=== PATIENT | female | born 1990 | race Caucasian/White ===

== ENCOUNTER 2018-01-24 07:52 | Emergency (ER) | payer SELFPAY ==
[~2018-01-24] VITALS: Ht 167.6 cm; Wt 55.0 kg
[2018-01-24 08:01] VITALS: BP 141/60; PULSE 91; RESP 15; TEMP 98.4; O2SAT 99
[2018-01-24] MEDS ORDERED: LIDOCAINE 1%/EPINEPHrine 1:100,000 SOLN 50 ML VIAL ONE (08:14)
[2018-01-24] MEDS ORDERED: LIDOCAINE 1%/EPINEPHrine 1:100,000 SOLN 20 ML VIAL INFIL ONE (08:15)
--- NOTE | 2018-01-24 08:40 | PD ---
HPI Chief Complaint: Skin Problem Time Seen by Provider: 08:08 Travel History International Travel<30 days: No Contact w/Intl Traveler<30days: No Traveled to known affect area: No History of Present Illness HPI 27-year-old female presents the emergency department with painful swollen erythematous abscess to the left medial upper buttock. Patient states it started with possible spider bite approximately 5 days ago and is gotten progressively worse. She states some spontaneous drainage last evening, but worse pain without drainage overnight. Patient has history of similar abscess in her axilla several years ago. She denies fever, chills, or other symptoms. She is allergic to erythromycin, and penicillin. PFSH Past Medical History Asthma: Yes Cancer: No Diabetes: No Diminished Hearing: No Glaucoma: No Hepatitis: No Hiatal Hernia: No Hypertension: No Respiratory: Yes (ASTHMA) Immunizations Current: Yes Thyroid Disease: No ?: Not LMP: 12/20/17 Past Surgical History Abdominal Surgery: Yes (HERNIA 1994) Cardiac Surgery: No Ear Surgery: No Endocrine Surgery: No Eye Surgery: No Genitourinary Surgery: No Gynecologic Surgery: No Oral Surgery: No Thoracic Surgery: No Other Surgery: Yes Social History Alcohol Use: No Tobacco Use: Yes Substance Use: Yes Allergies-Medications (Allergen,Severity, Reaction): Coded Allergies: penicillin G (Unverified Allergy, Intermediate, RASH, 01/24/18) azithromycin (Unverified Allergy, Unknown, 01/24/18) Reported Meds & Prescriptions Reported Meds & Active Scripts Active No Active Prescriptions or Reported Medications Review of Systems Except as stated in HPI: all other systems reviewed are Neg General / Constitutional: No: Fever Eyes: No: Visual changes HENT: No: Headaches Cardiovascular: No: Chest Pain or Discomfort Respiratory: No: Shortness of Breath Gastrointestinal: No: Abdominal Pain Genitourinary: No: Dysuria Musculoskeletal: No: Pain Skin: Positive Lesions, No Rash Neurologic: No: Weakness Psychiatric: No: Depression Endocrine: No: Polydipsia Hematologic/Lymphatic: No: Easy Bruising Physical Exam Narrative GENERAL: Patient appears in moderate distress per SKIN: Warm and dry. Normal color. Normal turgor. Patient has obvious abscess with pointing to the left upper medial buttock measuring 3 cm in diameter. It is very tender and indurated. No spontaneous drainage is noted. HEAD: Atraumatic. Normocephalic. EYES: Pupils equal and round. No scleral icterus. No injection or drainage. ENT: No nasal bleeding or discharge. Mucous membranes pink and moist. Pharynx is clear. Airways patent NECK: Trachea midline. Supple. CARDIOVASCULAR: Regular rate and rhythm. RESPIRATORY: No accessory muscle use. Clear to auscultation. Breath sounds equal bilaterally. GASTROINTESTINAL: Abdomen soft, non-tender, nondistended. Hepatic and splenic margins not palpable. MUSCULOSKELETAL: Extremities without clubbing, cyanosis, or edema. No obvious deformities. NEUROLOGICAL: Awake and alert. No obvious cranial nerve deficits. Motor grossly within normal limits. Five out of 5 muscle strength in the arms and legs. Normal speech. PSYCHIATRIC: Appropriate mood and affect; insight and judgment normal. Data Data Last Documented VS Vital Signs Date Time Temp Pulse Resp B/P (MAP) Pulse Ox O2 Delivery O2 Flow Rate FiO2 01/24/18 08:01 98.4 91 15 141/60 (87) 99 Orders Orders Lidocai-Epi 1%-1:100,000 Inj (Xylocaine- (01/24/18 08:15) Lidocai-Epi 1%-1:100,000 Inj (Xylocaine- (01/24/18 08:14) MDM Medical Decision Making Medical Screen Exam Complete: Yes Emergency Medical Condition: Yes Medical Record Reviewed: Yes Differential Diagnosis Cellulitis. Abscess. Pilonidal cyst. Narrative Course I&D of abscess was performed. Packing was placed Patient placed on Bactrim DS twice daily 7 days. Patient given ibuprofen 800 mg 3 times daily with food #30. Wound care is discussed with the patient. Patient follow-up in 2 days for recheck and packing removal. Patient can follow-up sooner as needed Diagnosis Primary Impression: Abscess of left buttock Patient Instructions: Abscess Incision and Drainage (DC), General Instructions Departure Forms: Work Release Enter return to work date: Jan 26, 2018 Additional Instructions: I&D of abscess was performed. Packing was placed Patient placed on Bactrim DS twice daily 7 days. Patient given ibuprofen 800 mg 3 times daily with food #30. Wound care is discussed with the patient. Patient follow-up in 2 days for recheck and packing removal. Patient can follow-up sooner as needed Med/Other Pt SpecificInfo: Prescription(s) given, Wound Care Scripts No Active Prescriptions or Reported Meds Disposition: 01 DISCHARGE HOME Condition: Stable Owen Gonzales Jan 24, 2018 08:40
[2018-01-24] MEDS ORDERED: IBUP1TAB7 PO (08:41)
[2018-01-24] MEDS ORDERED: BACT800T5 PO (08:41)
== END 2018-01-24 08:55 | disposition home or self-care (01) ==
LOC: NEPK 07:52
DX: L02.31 Cutaneous abscess of buttock (principal); B95.62 Methicillin resistant Staphylococcus aureus infection as the cause of diseases classified elsewhere; J45.909 Unspecified asthma, uncomplicated; Z72.0 Tobacco use
CPT/HCPCS: 10081; 86403; 87070; 87186

== ENCOUNTER 2018-02-02 01:29 | Inpatient (IN) | payer SELFPAY ==
[2018-02-02] VITALS (11 sets, daily range): BP systolic 97–139; BP diastolic 54–78; PULSE 64–114; RESP 18–28; TEMP 98–99.2; O2SAT 96–100
[~2018-02-02] VITALS: Ht 167.6 cm; Wt 51.0 kg
[~2018-02-02 01:29] MED LIST: BACT800T5 PO; IBUP1TAB7 PO
[2018-02-02] MEDS ORDERED: CLINDAMYCIN INJ 900 MG in SODIUM CHLORIDE 0.9% INJ 100 ML IV ONE (02:15)
[2018-02-02] MEDS ORDERED: SODIUM CHLOR 0.9% 1000 ML INJ 1,000 ML IV ONE (02:15)
[2018-02-02] MEDS ORDERED: KETOROLAC TROMETHAMINE 30 MG/ML (IVP) VIAL IV PUSH ONE (02:15)
[2018-02-02] MEDS ORDERED: CLINDAMYCIN 900 MG/NS PREMIX 50 ML IV ONE (02:45)
[2018-02-02 02:55] LABS: AUTOMATED NEUTROPHIL # 7.7 TH/MM3 (1.8-7.7); BASOPHIL # 0.1 TH/MM3 (0-0.2); BASOPHIL % 1.1 % (0.0-2.0); EOSINOPHIL # 0.5 TH/MM3 (0-0.4); EOSINOPHIL % 3.9 % (0.0-4.0); HEMATOCRIT 35.3 % (35.0-46.0); HEMOGLOBIN 11.7 GM/DL (11.6-15.3); LYMPH % 22.8 % (9.0-44.0); LYMPHOCYTE # 2.6 TH/MM3 (1.0-4.8); MEAN CELL VOLUME 89.2 FL (80.0-100.0); MEAN CORPUSCULAR HEMOGLOBIN 29.5 PG (27.0-34.0); MEAN CORPUSCULAR HGB CONC 33.1 % (32.0-36.0); MEAN PLATELET VOLUME 8.2 FL (7.0-11.0); MONOCYTE # 0.7 TH/MM3 (0-0.9); NEUT % 66.2 % (16.0-70.0); PLATELET COUNT 395 TH/MM3 (150-450); RED BLOOD COUNT 3.96 MIL/MM3 (4.00-5.30); RED CELL DISTRIBUTION WIDTH 11.5 % (11.6-17.2); WHITE BLOOD COUNT 11.6 TH/MM3 (4.0-11.0)
[2018-02-02 03:05] LABS: CALCIUM 9.2 MG/DL (8.5-10.1)
[2018-02-02 03:06] LABS: BICARBONATE 25.4 MEQ/L (21.0-32.0)
[2018-02-02 03:09] LABS: CREATININE 0.76 MG/DL (0.50-1.00)
--- NOTE | 2018-02-02 03:16 | RADRPT ---
EXAM DATE/TIME: 02/02/2018 02:13 [facility] COMPARISON: No previous studies available for comparison. INDICATIONS : Patient states severe left hand pain from unknown injury. MEDICAL HISTORY : None. SURGICAL HISTORY : None. ENCOUNTER: Initial ACUITY: 1 day PAIN SCORE: 10/10 LOCATION: Left hand. FINDINGS: 3 views of the left hand. Bone alignment within normal limits. No evidence of fracture. No evidence of joint narrowing. No focal bone erosion. CONCLUSION: Left hand series within normal limits. Mustapha Acosta MD on February 02, 2018 at 3:14 Board Certified Radiologist. This report was verified electronically.
--- NOTE | 2018-02-02 03:17 | RADRPT ---
EXAM DATE/TIME: 02/02/2018 02:20 [facility] COMPARISON: No previous studies available for comparison. INDICATIONS : Chest pain. MEDICAL HISTORY : None. SURGICAL HISTORY : None. ENCOUNTER: Initial ACUITY: 1 day PAIN SCORE: 6/10 LOCATION: Bilateral chest FINDINGS: Single AP view of the chest. The lungs are clear. Cardiomediastinal silhouette within normal limits. No evidence of pleural effusion or pneumothorax. CONCLUSION: No acute cardiopulmonary disease identified. Mustapha Acosta MD on February 02, 2018 at 3:15 Board Certified Radiologist. This report was verified electronically.
--- NOTE | 2018-02-02 03:20 | PD ---
HPI Chief Complaint: Skin Problem Time Seen by Provider: 02:08 Travel History International Travel<30 days: No Contact w/Intl Traveler<30days: No Traveled to known affect area: No History of Present Illness HPI 27-year-old female presents to the emergency department by private transportation for complaint of severe left hand pain with swelling extending into the wrist with redness and warmth. Patient states she was just seen 1 week ago and diagnosed with abscess to the buttock and placed on Bactrim. Subsequently she has had multiple areas of small abscess and drainage but has had marked swelling of the left wrist and hand causing his to cascade in flexion. Patient states shortly after incision and drainage of the rectal abscess she noticed red swelling and a cordlike deformity to the palm of her left hand extending to her left middle finger. Patient is also noted left axillary tenderness and small lymph node prominence. Patient denies fever chills. Patient denies substance use. Patient admits to previous substance use and alcohol use. Patient has completed oral antibiotic Bactrim. Patient does not report any specific injury. The patient rates her pain 9/10 in intensity. Patient states pain is excruciating and intolerable with any attempted extension of her fingers actively or passively. [facility] Past Medical History Narrative Medical Asthma, herniorrhaphy, tobacco use; nursing notes reviewed Asthma: Yes Cancer: No Diabetes: No Diminished Hearing: No Glaucoma: No Hepatitis: No Hiatal Hernia: No Hypertension: No Respiratory: Yes (ASTHMA) Immunizations Current: Yes Tetanus Vaccination: > 5 Years Influenza Vaccination: No ?: Not Past Surgical History Abdominal Surgery: Yes (HERNIA 1994) Other Surgery: Yes Social History Alcohol Use: No Tobacco Use: Yes Substance Use: No Allergies-Medications (Allergen,Severity, Reaction): Coded Allergies: azithromycin (Unverified Allergy, Intermediate, hives, 02/02/18) penicillin G (Unverified Allergy, Intermediate, RASH, 02/02/18) Reported Meds & Prescriptions Reported Meds & Active Scripts Active No Active Prescriptions or Reported Medications Review of Systems Except as stated in HPI: all other systems reviewed are Neg General / Constitutional: Positive: Chills, No: Fever HENT: No: Congestion Cardiovascular: No: Chest Pain or Discomfort Respiratory: No: Shortness of Breath Gastrointestinal: No: Nausea, Vomiting, Abdominal Pain Genitourinary: No: Dysuria Musculoskeletal: Positive: Limited ROM (Left hand and fingers), Pain (Left hand ), No: Myalgias, Arthralgias Skin: Positive Rash Neurologic: No: Weakness Psychiatric: Positive: Anxiety Hematologic/Lymphatic: Positive: Lymph Node Enlargement Physical Exam Narrative GENERAL: Well-developed well-nourished female in no acute distress no respiratory distress SKIN: Warm and dry. Multiple various staged papules with and without scabs in place without pustules vesicles active purulent drainage HEAD: Normocephalic. EYES: No scleral icterus. No injection or drainage. NECK: Supple, trachea midline. No JVD or lymphadenopathy. CARDIOVASCULAR: Regular rate and rhythm without murmurs, gallops, or rubs. RESPIRATORY: Breath sounds equal bilaterally. No accessory muscle use. GASTROINTESTINAL: Abdomen soft, non-tender, nondistended. MUSCULOSKELETAL: No cyanosis, or edema. Attention left upper extremity and left hand and wrist held in partial flexion was reaction of marked pain with attempted extension active or passive affecting specifically the left middle finger and index finger palmar tenderness and soft tissue swelling without crepitus question solo puncture wound (patient denies puncture wound). Capillary refill brisk and less than 2 seconds. Radial ulnar pulses 2+ to palpation. Distal volar erythema and tenderness to palpation of the left axilla without palpable lymphadenopathy. Sensory exam intact. Mild swelling at the base of the left middle finger does not appear to be actually fusiform. BACK: Nontender without obvious deformity. No CVA tenderness. Data Data Last Documented VS Vital Signs Date Time Temp Pulse Resp B/P (MAP) Pulse Ox O2 Delivery O2 Flow Rate FiO2 02/02/18 02:08 20 02/02/18 01:43 99.0 114 139/74 (95) 02/02/18 01:30 98 Orders Orders Basic Metabolic Panel (Bmp) (02/02/18 02:08) Complete Blood Count With Diff (02/02/18 02:08) Blood Culture (02/02/18 02:08) Iv Access Insert/Monitor (02/02/18 02:08) Ed Urine Pregnancytest Poc (02/02/18 02:08) Urinalysis - C+S If Indicated (02/02/18 02:08) Drug Screen, Random Urine (02/02/18 02:08) Hand, Complete ([id number]) (02/02/18 ) Sodium Chlor 0.9% 1000 Ml Inj (Ns 1000 M (02/02/18 02:15) Lactic Acid (02/02/18 02:08) Ketorolac Inj (Toradol Inj) (02/02/18 02:15) Chest, Single Ap (02/02/18 ) Clindamycin 900 Mg/Ns Premix (Cleocin 90 (02/02/18 02:45) Urine Culture (02/02/18 03:00) Vancomycin Inj (Vancomycin Inj) (02/02/18 04:30) Morphine Inj (Morphine Inj) (02/02/18 04:45) Ondansetron Inj (Zofran Inj) (02/02/18 04:45) Mri Hand W&W/O Contrast (02/02/18 ) Labs Laboratory Tests Test 02/02/18 02:40 02/02/18 03:00 White Blood Count 11.6 TH/MM3 Red Blood Count 3.96 MIL/MM3 Hemoglobin 11.7 GM/DL Hematocrit 35.3 % Mean Corpuscular Volume 89.2 FL Mean Corpuscular Hemoglobin 29.5 PG Mean Corpuscular Hemoglobin Concent 33.1 % Red Cell Distribution Width 11.5 % Platelet Count 395 TH/MM3 Mean Platelet Volume 8.2 FL Neutrophils (%) (Auto) 66.2 % Lymphocytes (%) (Auto) 22.8 % Monocytes (%) (Auto) 6.0 % Eosinophils (%) (Auto) 3.9 % Basophils (%) (Auto) 1.1 % Neutrophils # (Auto) 7.7 TH/MM3 Lymphocytes # (Auto) 2.6 TH/MM3 Monocytes # (Auto) 0.7 TH/MM3 Eosinophils # (Auto) 0.5 TH/MM3 Basophils # (Auto) 0.1 TH/MM3 CBC Comment DIFF FINAL Differential Comment Blood Urea Nitrogen 17 MG/DL Creatinine 0.76 MG/DL Random Glucose 106 MG/DL Calcium Level 9.2 MG/DL Sodium Level 135 MEQ/L Potassium Level 3.7 MEQ/L Chloride Level 102 MEQ/L Carbon Dioxide Level 25.4 MEQ/L Anion Gap 8 MEQ/L Estimat Glomerular Filtration Rate 91 ML/MIN Lactic Acid Level 1.0 mmol/L Urine Color YELLOW Urine Turbidity SL CLOUDY Urine pH 7.5 Urine Specific Emerson LESS/EQUAL 1.005 Urine Protein NEG mg/dL Urine Glucose (UA) NEG mg/dL Urine Ketones NEG mg/dL Urine Occult Blood NEG Urine Nitrite NEG Urine Bilirubin NEG Urine Urobilinogen 0.2 MG/DL Urine Leukocyte Esterase NEG Urine RBC 0-2 /hpf Urine WBC 0-2 /hpf Urine Squamous Epithelial Cells 0-5 /hpf Urine Bacteria MANY /hpf Microscopic Urinalysis Comment CULTURE INDICATED Urine Opiates Screen NEG Urine Barbiturates Screen NEG Urine Amphetamines Screen NEG Urine Benzodiazepines Screen NEG Urine Cocaine Screen NEG Urine Cannabinoids Screen NEG MDM Medical Decision Making Medical Screen Exam Complete: Yes Emergency Medical Condition: Yes Medical Record Reviewed: Yes Interpretation(s) POC hcg: negative UDS: negative Lactic acid: 1.0, not elevated UA: many bacteria, cx indicated Last Impressions Hand X-Ray 02/02/18 0000 Signed Impressions: Service Date/Time: Friday, February 02, 2018 02:13 - CONCLUSION: Left hand series within normal limits. Mustapha Acosta MD Chest X-Ray 02/02/18 0000 Signed Impressions: Service Date/Time: Friday, February 02, 2018 02:20 - CONCLUSION: No acute cardiopulmonary disease identified. Mustapha Acosta MD CBC & BMP Diagram 02/02/18 02:40 Calcium Level 9.2 Vital Signs Date Time Temp Pulse Resp B/P (MAP) Pulse Ox O2 Delivery O2 Flow Rate FiO2 02/02/18 02:08 20 02/02/18 01:43 99.0 114 20 139/74 (95) 02/02/18 01:30 99.0 114 18 139/74 (95) 98 Differential Diagnosis Folliculitis skin popping cellulitis infectious flexor tenosynovitis de Quervain 's inflammatory tenosynovitis radial nerve palsy compartment syndrome fracture puncture wound retained foreign body polysubstance ingestion Narrative Course IV access obtained specimens collections of resulting patient administered clindamycin 900 mg IV piggyback and Toradol 30 mg IV x-ray of the left hand performed to evaluate for retained radiopaque foreign body or subcu gas neither of which are noted and no evidence for fracture Patient given additional IV antibiotic 1 g vancomycin CBC with automated differential left shift with normal total white cell count and lactic acid is 1.0, not elevated; imaging shows no acute abnormality other than soft tissue swelling Urine drug screen is negative however urinalysis shows bacteriuria Patient's case discussed with on-call hand surgeon recommend stat MRI of the hand and will see in consultation this morning with MRI imaging; case discussed with on-call medicine for admission; patient being kept n.p.o. Patient given morphine sulfate 3 mg IV 1 dose Physician Communication Physician Communication discussed with Dr Soni requests stat MRI of the hand will see this AM, npo; call placed to [facility] discussed with Dr Curry --admit, npo Diagnosis Primary Impression: Cellulitis of multiple sites of left hand and fingers Additional Impression: Bacteriuria Admitting Information Admitting Physician Requests: Admit Scripts No Active Prescriptions or Reported Meds Amisha Aquino MD Feb 02, 2018 03:20
[2018-02-02 03:27] LABS: BILIRUBIN, URINE NEG (NEG); BLOOD, URINE NEG (NEG); GLUCOSE,URINE NEG (NEG); KETONE, URINE NEG (NEG); NITRITE,URINE NEG (NEG); PH, URINE 7.5 (5.0-8.5); URINE COLOR YELLOW (YELLW/STRAW); URINE LEUKOCYTE ESTERASE NEG (NEG)
[2018-02-02 03:36] LABS: BACTERIA, URINE MANY /hpf; RBC, URINE 0-2 /hpf (0-3); SQUAMOUS EPITHELIAL CELL URINE 0-5 /hpf (0-5); WBC, URINE 0-2 /hpf (0-5)
[2018-02-02] MEDS ORDERED: VANCOMYCIN INJ 1,000 MG in SODIUM CHLOR 0.9% 250 ML INJ 250 ML IV ONE (04:30)
[2018-02-02] MEDS ORDERED: SODIUM CHLOR 0.9% 1000 ML INJ 1,000 ML IV SCH (04:40)
[2018-02-02] MEDS ORDERED: MORPHINE SULFATE 2 MG/ML SYRINGE IV PUSH ONE (04:45)
[2018-02-02] MEDS ORDERED: SENNOSIDES 8.6 MG TAB PO PRN (04:45)
[2018-02-02] MEDS ORDERED: ACETAMINOPHEN 325 MG TAB PO PRN (04:45)
[2018-02-02] MEDS ORDERED: BISACODYL 10 MG SUPP RECTAL PRN (04:45)
[2018-02-02] MEDS ORDERED: LACTULOSE SYRUP 20 GM/30 ML CUP PO PRN (04:45)
[2018-02-02] MEDS ORDERED: MAGNESIUM HYDROXIDE SUSP 30 ML CUP PO PRN (04:45)
[2018-02-02] MEDS ORDERED: ONDANSETRON HCL 4 MG/2 ML VIAL IV PUSH ONE (04:45)
[2018-02-02] MEDS ORDERED: ONDANSETRON HCL 4 MG/2 ML VIAL IVP PRN (04:45)
[2018-02-02] MEDS ORDERED: Vancomycin Consult Pharmacy 1 EA OTHER SCH (04:45)
[2018-02-02] MEDS ORDERED: GADODIAMIDE PF 287 MG/ML 5 ML VIAL (for RAD MRI) IVCONTRAST ONE (06:36)
--- NOTE | 2018-02-02 07:03 | RADRPT ---
EXAM DATE/TIME: 02/02/2018 06:11 [facility] COMPARISON: HAND LEFT COMPLETE ([id number]), February 02, 2018, 2:13. INDICATIONS : Abscess. Left hand pain from distal third MCPJ to wrist. CONTRAST: 10 cc Omniscan (gadodiamide) IV MEDICAL HISTORY : Methicillin-resistant Staphylococcus aureus. Asthma. SURGICAL HISTORY : Left thumb surgery. Hernia surgery. ENCOUNTER: Initial ACUITY: 1 day PAIN SCORE: 9/10 LOCATION: Left hand TECHNIQUE: Multiplanar, multisequence MRI examination was performed without contrast and after the intravenous a dministration of gadolinium. FINDINGS: Diffuse thickening and intermediate signal abnormality of the flexor digitorum superficialis tendon o f the long finger. Ill-defined surrounding soft tissue edema and enhancement is seen adjacent to all of the flexor digitorum tendons at the levels of the metacarpals and carpal tunnel. Bone marrow signal is homogeneous and within normal limits. No focal bone erosion. CONCLUSION: Extensive peritendinitis/tenosynovitis of the flexor digitorum tendons. Diffuse tendinosis of the rin g finger flexor digitorum superficialis tendon. Infection is in the differential diagnosis. Mustapha Acosta MD on February 02, 2018 at 6:50 Board Certified Radiologist. This report was verified electronically.
[2018-02-02] MEDS: SODIUM CHLORIDE 0.9% FLUSH 10 ML FLUSH IV FLUSH SCH ×2 (07:51→21:31)
[2018-02-02] MEDS: DOCUSATE SODIUM 50 MG/SENNA 8.6 MG TAB PO SCH ×2 (08:06→21:28)
--- NOTE | 2018-02-02 08:30 | HHI.HP ---
[facility] No Primary Care Physician Admission Diagnosis Cellulitis/tenosynovitis L hand Diagnoses: (1) Bacteriuria (2) Cellulitis of multiple sites of left hand and fingers Chief Complaint: Left wrist/hand swelling Travel History International Travel<30 Days: No Contact w/Intl Traveler <30 Da: No Traveled to Known Affected Are: No History of Present Illness This is a 27-year-old female patient with a known medical history of IV drug abuse, asthma, tobacco abuse who presented to the ED with complaints of severe left wrist/hand swelling and pain. Patient seen and examined in hospital room with friend at bedside, patient is not verbalizing, rather uncooperative and not responding or answering to any of the questions asked. Friend at bedside is assisting with retrieving medical history. Supposedly patient presented to the ED 1 week ago for a buttock abscess suspected secondary to a spider bite that was drained in ED and prescribed Bactrim. Supposedly patient had delays in retrieving antibiotic and did not take full course of antibiotic. Since that time patient developed a left hand swelling and pain as well as the development of multiple blisters and sores over both bilateral upper and lower extremities. She also complained of left axillary tenderness. When inquired about IV drug abuse her friend at bedside states that is a violation of privacy and he will not disclose this information. Drug tox is negative. Patient is not answering question. Patient is presented with multiple areas of small abscesses and drainage. She does complain of pain to movement or palpation of wrist. There are reports of subjective fevers and chills as well as diaphoresis. Denies any recent weight loss. Review of Systems ROS Limitations: Uncooperative, Refused Constitutional: COMPLAINS OF: Fatigue, Fever, Chills Eyes: DENIES: Diplopia Respiratory: DENIES: Cough, Sputum production, Shortness of breath Cardiovascular: DENIES: Chest pain Gastrointestinal: DENIES: Abdominal pain, Black stools, Bloody stools, Constipation, Diarrhea, Nausea, Vomiting Psychiatric: DENIES: Anxiety Except as stated in HPI: all other systems reviewed are Neg Past Family Social History Past Medical History IV drug abuse Tobacco abuse Asthma Past Surgical History Unspecified left hand surgery Hernia repair Reported Medications Active No Active Prescriptions or Reported Medications Allergies: Coded Allergies: azithromycin (Unverified Allergy, Intermediate, hives, 02/02/18) penicillin G (Unverified Allergy, Intermediate, RASH, 02/02/18) Active Ordered Medications Current Medications Medications (Trade) Dose Ordered Sig/Chelo Route Start Time Stop Time Status Last Admin Pharmacy Profile Note 0 ml @ 0 mls/hr UNSCH OTHER 02/02/18 04:45 Cefepime HCl 1000 mg/Sodium Chloride 100 ml @ 200 mls/hr Q12H IV 02/02/18 09:00 02/02/18 08:52 Sodium Chloride 1,000 ml @ 100 mls/hr Q10H IV 02/02/18 04:40 02/02/18 06:36 (NS Flush) 2 ml UNSCH PRN IV FLUSH 02/02/18 04:45 (NS Flush) 2 ml BID IV FLUSH 02/02/18 09:00 (Zofran Inj) 4 mg Q6H PRN IVP 02/02/18 04:45 (Tylenol) 650 mg Q6H PRN PO 02/02/18 04:45 ([place] 5-325 Mg) 1 tab Q4H PRN PO 02/02/18 04:45 (Morphine Inj) 2 mg Q3H PRN IV PUSH 02/02/18 04:45 (Gricelda-Colace) 1 tab BID PO 02/02/18 09:00 (Milk Of Magnesia Liq) 30 ml Q12H PRN PO 02/02/18 04:45 (Senokot) 17.2 mg Q12H PRN PO 02/02/18 04:45 (Dulcolax Supp) 10 mg DAILY PRN RECTAL 02/02/18 04:45 (Lactulose Liq) 30 ml DAILY PRN PO 02/02/18 04:45 Vancomycin/Sodium Chloride 200 ml @ 200 mls/hr Q12H IV 02/02/18 16:00 Miscellaneous Information SPECIFIC LAB TO BE DRAWN:VANCOMYCIN TROUGH DATE TO... ONCE ONCE .XX 02/03/18 15:45 02/03/18 15:46 Family History Unable to obtain. Social History Patient does admit to daily tobacco use. Does not answer the question regarding illicit drug use or alcohol use. Physical Exam Vital Signs Vital Signs Date Time Temp Pulse Resp B/P (MAP) Pulse Ox O2 Delivery O2 Flow Rate FiO2 02/02/18 07:28 02/02/18 06:39 65 18 105/59 (74) 98 Room Air 02/02/18 04:46 28 109/65 (80) 97 Room Air 02/02/18 02:08 20 02/02/18 01:43 99.0 114 20 139/74 (95) 02/02/18 01:30 99.0 114 18 139/74 (95) 98 Physical Exam GENERAL: Well-developed, well-nourished patient in NAD. SKIN: Multiple blisters and abrasions on upper and lower extremities. Buttock abrasion assessed, mild erythema, no induration, no drainage. Left hand/wrist swelling. No erythema or drainage. Multiple scabbing throughout body. HEAD: Normocephalic. Atraumatic. EYES: Pupils equal and round. No scleral icterus. No injection or drainage. ENT: No nasal bleeding or discharge. Mucous membranes pink and moist. NECK: Supple. Trachea midline. CARDIOVASCULAR: Regular rate and rhythm. S1, S2 noted. No murmur appreciated. RESPIRATORY: No accessory muscle use. Clear to auscultation. Breath sounds equal bilaterally. GASTROINTESTINAL: Abdomen soft, non-tender, nondistended. Normoactive bowel sounds x4. MUSCULOSKELETAL: No obvious deformities. Extremities without clubbing, cyanosis , or edema. NEUROLOGICAL: Awake and alert. No obvious cranial nerve deficits. Motor grossly within normal limits. 5/5 muscle strength in bilateral upper and lower extremities. PSYCHIATRIC: Patient not verbalizing, withdrawn and flat affect. Laboratory Laboratory Tests Test 02/02/18 02:40 02/02/18 03:00 White Blood Count 11.6 Red Blood Count 3.96 Hemoglobin 11.7 Hematocrit 35.3 Mean Corpuscular Volume 89.2 Mean Corpuscular Hemoglobin 29.5 Mean Corpuscular Hemoglobin Concent 33.1 Red Cell Distribution Width 11.5 Platelet Count 395 Mean Platelet Volume 8.2 Neutrophils (%) (Auto) 66.2 Lymphocytes (%) (Auto) 22.8 Monocytes (%) (Auto) 6.0 Eosinophils (%) (Auto) 3.9 Basophils (%) (Auto) 1.1 Neutrophils # (Auto) 7.7 Lymphocytes # (Auto) 2.6 Monocytes # (Auto) 0.7 Eosinophils # (Auto) 0.5 Basophils # (Auto) 0.1 CBC Comment DIFF FINAL Differential Comment Erythrocyte Sedimentation Rate 57 Blood Urea Nitrogen 17 Creatinine 0.76 Random Glucose 106 Calcium Level 9.2 Sodium Level 135 Potassium Level 3.7 Chloride Level 102 Carbon Dioxide Level 25.4 Anion Gap 8 Estimat Glomerular Filtration Rate 91 Lactic Acid Level 1.0 Urine Color YELLOW Urine Turbidity SL CLOUDY Urine pH 7.5 Urine Specific [place] LESS/EQUAL 1.005 Urine Protein NEG Urine Glucose (UA) NEG Urine Ketones NEG Urine Occult Blood NEG Urine Nitrite NEG Urine Bilirubin NEG Urine Urobilinogen 0.2 Urine Leukocyte Esterase NEG Urine RBC 0-2 Urine WBC 0-2 Urine Squamous Epithelial Cells 0-5 Urine Bacteria MANY Microscopic Urinalysis Comment CULTURE INDICATED Urine Opiates Screen NEG Urine Barbiturates Screen NEG Urine Amphetamines Screen NEG Urine Benzodiazepines Screen NEG Urine Cocaine Screen NEG Urine Cannabinoids Screen NEG Date/Time Source Procedure Growth Status 02/02/18 02:40 Blood Peripheral Aerobic Blood Culture Pending Received 02/02/18 02:40 Blood Peripheral Anaerobic Blood Culture Pending Received 02/02/18 03:00 Urine Clean Catch Urine Culture Pending Received Result Diagram: 02/02/18 0240 02/02/18 0240 Imaging Last Impressions Hand X-Ray 02/02/18 0000 Signed Impressions: Service Date/Time: Friday, February 02, 2018 02:13 - CONCLUSION: Left hand series within normal limits. Mustapha Acosta MD Hand MRI 02/02/18 0000 Signed Impressions: Service Date/Time: Friday, February 02, 2018 06:11 - CONCLUSION: Extensive peritendinitis/tenosynovitis of the flexor digitorum tendons. Diffuse tendinosis of the ring finger flexor digitorum superficialis tendon. Infection is in the differential diagnosis. Mustapha Acosta MD Chest X-Ray 02/02/18 0000 Signed Impressions: Service Date/Time: Friday, February 02, 2018 02:20 - CONCLUSION: No acute cardiopulmonary disease identified. Mustapha Acosta MD Septic Shock Reassessment Septic shock perfusion: reassessment completed Caprini VTE Risk Assessment Caprini VTE Risk Assessment: No/Low Risk (score <= 1) Caprini Risk Assessment Model Point Value = 1 Point Value = 2 Point Value = 3 Point Value = 5 Age 41-60 Minor surgery BMI > 25 kg/m2 Swollen legs Varicose veins or History of unexplained or recurrent spontaneous Oral contraceptives or hormone replacement Sepsis (< 1 month) Serious lung disease, including pneumonia (< 1 month) Abnormal pulmonary function Acute myocardial infarction Congestive heart failure (< 1 month) History of inflammatory bowel disease Medical patient at bed rest Age 61-74 Arthroscopic surgery Major open surgery (> 45 min) Laparoscopic surgery (> 45 min) Malignancy Confined to bed (> 72 hours) Immobilizing plaster cast Central venous access Age >= 75 History of VTE Family history of VTE Factor V Leiden Prothrombin [id number] Lupus anticoagulant Anticardiolipin antibodies Elevated serum homocysteine Heparin-induced thrombocytopenia Other congenital or acquired thrombophilia Stroke (< 1 month) Elective arthroplasty Hip, pelvis, or leg fracture Acute spinal cord injury (< 1 month) Prophylaxis Regimen Total Risk Factor Score Risk Level Prophylaxis Regimen 0-1 Low Early ambulation 2 Moderate Order ONE of the following: *Sequential Compression Device (SCD) *Heparin 5000 units SQ BID 3-4 Higher Order ONE of the following medications: *Heparin 5000 units SQ TID *Enoxaparin/Lovenox 40 mg SQ daily (WT < 150 kg, CrCl > 30 mL/min) *Enoxaparin/Lovenox 30 mg SQ daily (WT < 150 kg, CrCl > 10-29 mL/min) *Enoxaparin/Lovenox 30 mg SQ BID (WT < 150 kg, CrCl > 30 mL/min) AND/OR *Sequential Compression Device (SCD) 5 or more Highest Order ONE of the following medications: *Heparin 5000 units SQ TID (Preferred with Epidurals) *Enoxaparin/Lovenox 40 mg SQ daily (WT < 150 kg, CrCl > 30 mL/min) *Enoxaparin/Lovenox 30 mg SQ daily (WT < 150 kg, CrCl > 10-29 mL/min) *Enoxaparin/Lovenox 30 mg SQ BID (WT < 150 kg, CrCl > 30 mL/min) AND *Sequential Compression Device (SCD) Assessment and Plan Problem List: (1) Bacteriuria ICD Code: R82.71 - Bacteriuria Status: Acute (2) Cellulitis of multiple sites of left hand and fingers ICD Code: L03.012 - Cellulitis of left finger; L03.114 - Cellulitis of left upper limb Status: Acute Assessment and Plan This is a 27-year-old female patient with a known medical history of IV drug abuse, asthma, tobacco abuse who presented to the ED with complaints of severe left wrist/hand swelling and pain. Cellulitis of multiple sites of left hand and fingers suspect secondary to IV drug use - Hand MRI showing extensive peritendinitis/tenosynovitis of the flexor digitorum tendons. Diffuse tendinosis of the ring finger flexor digitorum superficialis tendon. - Infectious disease has been consulted, appreciate input recommendations. Placed on Ceftin cefepime and Vanco. - Ensure hydration, continue IV fluids. Status post NS bolus in the ED. - Abnormal UA. Blood cultures and urine cultures pending, continue to monitor. CBC showing mild leukocytosis. We will continue to follow. Patient has been afebrile. - CRP elevated. - Chest x-ray reviewed showing no acute cardiopulmonary disease. - Control pain, IV narcotics available as needed for pain scale. As well as [place]. Supportive care. History of IV drug abuse: Drug tox negative. Encouraged cessation. DVT prophylaxis: SCDs. Physician Certification 2 Midnight Certification Type: Admission for Inpatient Services Order for Inpatient Services The services are ordered in accordance with Medicare regulations or non- Medicare payer requirements, as applicable. In the case of services not specified as inpatient-only, they are appropriately provided as inpatient services in accordance with the 2-midnight benchmark. Estimated LOS (days): 3 3 days is the estimated time the patient will need to remain in the hospital, assuming treatment plan goals are met and no additional complications. Post-Hospital Plan: Home Fanny Gray Feb 02, 2018 08:30
[2018-02-02] MEDS: CEFEPIME INJ 1,000 MG in SODIUM CHLORIDE 0.9% INJ 100 ML IV SCH ×2 (08:52→21:31)
--- NOTE | 2018-02-02 08:53 | PD.CONS ---
History of Present Illness Service ID CONSULT DR CRAWFORD Consult Requested By DR PEREZ Reason for Consult LEFT WRIST PAIN H/O MRSA Primary Care Physician No Primary Care Physician Diagnoses: (1) Cellulitis of multiple sites of left hand and fingers (2) Bacteriuria History of Present Illness 27 YR OLD FEMALE WHO IS HERE FOR LEFT WRIST PAIN AND SWELLING. SHE WAS HERE A WEEK AGO FOR A POSSIBLE SPIDER BITE TO THE LEFT BUTTOCK. IT SPONTANEOUSLY DRAINED AND SHE WAS SEEN IN ER AND SENT HOME ON BACTRIM 01/24. ACCORDING TO HER FRIEND WHO IS HERE IN THE ROOM SHE DID NOT FILL THE SCRIPT UNTIL ABOUT 3 DAYS LATER. WHEN ASKED IF SHE IS WAS USING ANY IV DRUGS HER FRIEND IS VERY EVASIVE AND STATES HE CANT BETRAY HER TRUST. DRUG SCREEN WAS NEGATIVE. APPARENTLY AFTER THE ABSCESS TO THE BUTTOCK SHE DEVELOPED BLISTERS AND SORES ALL OVER HER ARMS AND LEGS. SHE HAS C/O FEVER AND CHILLS. SHE STARTED TO HAVE PAIN IN THE LEFT WRIST 4 DAYS AGO WITH SWELLING. MRI LEFT HAND SUGGEST INFECTION AROUND THE TENDON. ID IS CONSULTED. HAND SURGERY IS ON BOARD. Review of Systems Constitutional: COMPLAINS OF: Fever, Chills Endocrine: DENIES: Polydipsia, Polyphagia Eyes: DENIES: Photosensitivity Ears, nose, mouth, throat: DENIES: Oral lesions Musculoskeletal: COMPLAINS OF: Joint Swelling Immunologic/allergic: COMPLAINS OF: Urticaria Neurologic: COMPLAINS OF: Localized weakness Past Family Social History Allergies: Coded Allergies: azithromycin (Unverified Allergy, Intermediate, hives, 02/02/18) penicillin G (Unverified Allergy, Intermediate, RASH, 02/02/18) Past Medical History PREVIOUS SKIN ABSCESS H/O MRSA SKIN INFECTION LEFT WRIST SURGERY TATTOOS Past Surgical History LEFT WRIST SURGERY Family History NOT AVAILABLE Social History + TOBACCO USE + SUBSTANCE ABUSE Physical Exam Vital Signs Vital Signs Date Time Temp Pulse Resp B/P (MAP) Pulse Ox O2 Delivery O2 Flow Rate FiO2 02/02/18 07:28 02/02/18 06:39 65 18 105/59 (74) 98 Room Air 02/02/18 04:46 28 109/65 (80) 97 Room Air 02/02/18 02:08 20 02/02/18 01:43 99.0 114 20 139/74 (95) 02/02/18 01:30 99.0 114 18 139/74 (95) 98 Physical Exam GENERAL: This is a lethargic acutely ill patient, in no apparent distress. SKIN: No rashes, ecchymoses multiple skin lesions left [place] with redness swelling . Cool and dry. HEAD: Atraumatic. Normocephalic. No temporal or scalp tenderness. EYES: Pupils equal round and reactive. Extraocular motions intact. No scleral icterus. No injection or drainage. ENT: Nose without bleeding, purulent drainage or septal hematoma. Throat without erythema, tonsillar hypertrophy or exudate. Uvula midline. Airway patent. NECK: Trachea midline. No JVD or lymphadenopathy. Supple, nontender, no meningeal signs. CARDIOVASCULAR: Regular rate and rhythm without murmurs, gallops, or rubs. RESPIRATORY: Clear to auscultation. Breath sounds equal bilaterally. No wheezes , rales, or rhonchi. GASTROINTESTINAL: Abdomen soft, non-tender, nondistended. No hepato-splenomegaly , or palpable masses. No guarding. MUSCULOSKELETAL: Extremities without clubbing, cyanosis, or edema. left wrist joint tenderness and swelling , effusion, or edema noted. No calf tenderness. Negative Homans sign bilaterally. NEUROLOGICAL: lethargic. Laboratory Laboratory Tests Test 02/02/18 02:40 02/02/18 03:00 White Blood Count 11.6 Red Blood Count 3.96 Hemoglobin 11.7 Hematocrit 35.3 Mean Corpuscular Volume 89.2 Mean Corpuscular Hemoglobin 29.5 Mean Corpuscular Hemoglobin Concent 33.1 Red Cell Distribution Width 11.5 Platelet Count 395 Mean Platelet Volume 8.2 Neutrophils (%) (Auto) 66.2 Lymphocytes (%) (Auto) 22.8 Monocytes (%) (Auto) 6.0 Eosinophils (%) (Auto) 3.9 Basophils (%) (Auto) 1.1 Neutrophils # (Auto) 7.7 Lymphocytes # (Auto) 2.6 Monocytes # (Auto) 0.7 Eosinophils # (Auto) 0.5 Basophils # (Auto) 0.1 CBC Comment DIFF FINAL Differential Comment Erythrocyte Sedimentation Rate 57 Blood Urea Nitrogen 17 Creatinine 0.76 Random Glucose 106 Calcium Level 9.2 Sodium Level 135 Potassium Level 3.7 Chloride Level 102 Carbon Dioxide Level 25.4 Anion Gap 8 Estimat Glomerular Filtration Rate 91 Lactic Acid Level 1.0 Urine Color YELLOW Urine Turbidity SL CLOUDY Urine pH 7.5 Urine Specific [place] LESS/EQUAL 1.005 Urine Protein NEG Urine Glucose (UA) NEG Urine Ketones NEG Urine Occult Blood NEG Urine Nitrite NEG Urine Bilirubin NEG Urine Urobilinogen 0.2 Urine Leukocyte Esterase NEG Urine RBC 0-2 Urine WBC 0-2 Urine Squamous Epithelial Cells 0-5 Urine Bacteria MANY Microscopic Urinalysis Comment CULTURE INDICATED Urine Opiates Screen NEG Urine Barbiturates Screen NEG Urine Amphetamines Screen NEG Urine Benzodiazepines Screen NEG Urine Cocaine Screen NEG Urine Cannabinoids Screen NEG Date/Time Source Procedure Growth Status 02/02/18 02:40 Blood Peripheral Aerobic Blood Culture Pending Received 02/02/18 02:40 Blood Peripheral Anaerobic Blood Culture Pending Received 02/02/18 03:00 Urine Clean Catch Urine Culture Pending Received Result Diagram: 02/02/18 0240 02/02/18 0240 Assessment and Plan Problem List: (1) Bacteriuria ICD Codes: R82.71 - Bacteriuria Status: Acute (2) Cellulitis of multiple sites of left hand and fingers ICD Codes: L03.012 - Cellulitis of left finger; L03.114 - Cellulitis of left upper limb Status: Acute Plan: cipro/ vancomycin Cultures to be taken in OR will monitor and fu closely Pt should ideally have an HIV test however currently not lucid enough to consent Further orders to follow Siena Samaniego Feb 02, 2018 08:53
[2018-02-02] MEDS ORDERED: BACITRACIN TOP OINT 15 GM TUBE ONE (12:13)
[2018-02-02] MEDS ORDERED: NEOMYCIN/POLYMYXIN 1 ML G.U. IRRIGANT ONE (12:15)
[2018-02-02] MEDS ORDERED: LIDOCAINE HCL 2% 50 ML VIAL ONE (12:15)
[2018-02-02] MEDS ORDERED: VANCOMYCIN 500 MG VIAL ONE (13:07)
[2018-02-02] MEDS ORDERED: *MEPERIDINE 25 MG INJ VIAL PERIprocedural Use ONLY ONE (14:15)
[2018-02-02] MEDS ORDERED: MORPHINE SULFATE 8 MG/ML INJ ONE (14:22)
[2018-02-02] MEDS ORDERED: *HYDROmorphone PF 1 MG VIAL PERIprocedural Use ONLY ONE (14:45)
[2018-02-02] MEDS ORDERED: LORazepam 2 MG/ML VIAL ONE (14:51)
[2018-02-02] MEDS ORDERED: KETOROLAC TROMETHAMINE 30 MG/ML (IVP) VIAL ONE (14:54)
[2018-02-02] MEDS ORDERED: *Lactated Ringer's INJ 1,000 ML ONE (15:09)
--- NOTE | 2018-02-02 15:46 | PD.ORT.PN ---
Subjective Subjective Remarks Patient reports pain in PACU. Objective Vitals Vital Signs Date Time Temp Pulse Resp B/P (MAP) Pulse Ox O2 Delivery O2 Flow Rate FiO2 02/02/18 15:15 69 16 129/81 (97) 100 Nasal Cannula 2 02/02/18 15:00 98.6 57 16 132/79 (96) 100 Room Air 02/02/18 14:45 75 16 135/88 (104) 95 Room Air 02/02/18 14:30 70 16 132/81 (98) 99 02/02/18 14:15 78 16 121/78 (92) 100 02/02/18 14:12 77 02/02/18 14:12 97.8 77 16 124/81 (95) 96 02/02/18 12:04 99.2 64 16 125/78 (94) 98 02/02/18 11:50 99.2 64 20 125/78 (94) 98 02/02/18 09:08 67 02/02/18 07:50 98.0 65 20 110/73 (85) 100 02/02/18 07:28 02/02/18 06:39 65 18 105/59 (74) 98 Room Air 02/02/18 04:46 28 109/65 (80) 97 Room Air 02/02/18 02:08 20 02/02/18 01:43 99.0 114 20 139/74 (95) 02/02/18 01:30 99.0 114 18 139/74 (95) 98 I/O 02/01/18 02/01/18 02/01/18 02/02/18 02/02/18 02/02/18 07:00 15:00 23:00 07:00 15:00 23:00 Intake Total 1300 ml 100 ml Output Total 10 ml Balance 1300 ml 90 ml Intake IV Total 1300 ml 100 ml Output Urine Total 0 ml Estimated Blood Loss 10 ml Result Diagram: 02/02/18 0240 02/02/18 0240 Imaging Last 24 hours Impressions Hand X-Ray 02/02/18 0000 Signed Impressions: Service Date/Time: Friday, February 02, 2018 02:13 - CONCLUSION: Left hand series within normal limits. Mustapha Acosta MD Hand MRI 02/02/18 0000 Signed Impressions: Service Date/Time: Friday, February 02, 2018 06:11 - CONCLUSION: Extensive peritendinitis/tenosynovitis of the flexor digitorum tendons. Diffuse tendinosis of the ring finger flexor digitorum superficialis tendon. Infection is in the differential diagnosis. Mustapha Acosta MD Chest X-Ray 02/02/18 0000 Signed Impressions: Service Date/Time: Friday, February 02, 2018 02:20 - CONCLUSION: No acute cardiopulmonary disease identified. Mustapha Acosta MD Objective Remarks Dressing in place, <2 sec capillary refill to fingers, able to flex/extend fingers Assessment & Plan Assessment and Plan 27yF POD0 s/p I&D left hand including A1 maria victoria releases and debridement flexor tendon sheaths left index, middle, and ring fingers with clear fluid and tenosynovitis intraop -Follow multiple cultures, appreciate ID input -Elevate hand and work on gentle range of motion -Suture removal approximately 2 weeks Selene Soni MD Feb 02, 2018 15:46
[2018-02-02] MEDS ORDERED: VANCOMYCIN 1 GM/200 ML PREMIX IV SCH (16:00)
--- NOTE | 2018-02-02 17:04 | MP ---
cc: Selene Soni MD DATE OF OPERATION: 02/02/2018 DATE OF PROCEDURE: 02/02/2018 PREOPERATIVE DIAGNOSIS: Infectious tenosynovitis left hand with concern for abscess along the flexor tendon sheath of the left index, middle, and ring fingers. POSTOPERATIVE DIAGNOSIS: Infectious tenosynovitis left hand with concern for abscess along the flexor tendon sheath of the left index, middle, and ring fingers. PROCEDURE PERFORMED: 1. Incision and drainage abscess flexor tendon sheath, left index finger. 2. A1 maria victoria release, left index finger. 3. Incision and drainage abscess and flexor tendon sheath, left middle finger. 4. A1 maria victoria release, left middle finger. 5. Incision and drainage flexor tendon sheath, left ring finger. 6. A1 maria victoria release, left ring finger. SURGEON: Selene Soni MD ANESTHESIA: General and local. TOURNIQUET TIME: 25 minutes at 250 mmHg. SPECIMENS: Two cultures as well as tissue for culture and pathology. INDICATIONS FOR PROCEDURE: Daniela Jasmine is a 27-year-old female with approximately 1 week history of worsening pain and stiffness of the left hand. MRI concerning for infectious flexor tenosynovitis in concurrence with the labs. The patient elected to proceed with surgical intervention. Risks were explained to include but not limited to wound complications, infection, stiffness, pain, long-term contracture of the hand, dysfunction of the hand, need for additional surgeries and she elected to proceed. DESCRIPTION OF PROCEDURE: The patient was identified in the preoperative holding area and the correct extremity was marked. The patient was taken to the operating room where anesthesia was induced. Left upper extremity was prepped and draped in normal sterile fashion. After the patient underwent anesthesia, there was flexion contracture of the left index, middle, and ring fingers. No significant swelling over the forearm. Tourniquet was inflated to 250 mmHg for 25 minutes. Initially, an incision was made over the A1 maria victoria of the left index, middle, and ring fingers. There was clear fluid, which was expressed from the wound, which was sent for culture. There was thick tenosynovitis, which was sent for culture from the left middle finger. The A1 pulleys were incised of the left index, middle, and ring fingers. Three liters of antibiotic saline were irrigated through the wounds. Following this, the patient had full extension of the fingers as well as good tenodesis with range of motion of the wrist. I elected not to proceed with a carpal tunnel release as the patient had no numbness. There was no sign of compartment syndrome to the hand. Tourniquet was released. The patient had less than 2 capillary refill to the fingers. The wounds were closed with nylon. The patient was placed into a soft dressing, awoken from anesthesia without any complications. Approximately 12 mL of 2% lidocaine with no epinephrine was used to perform local anesthesia over the hand. The patient will remain admitted for IV antibiotics. I appreciate infectious disease recommendations. We will continue to follow closely. I also recommend occupational therapy to work on gentle range of motion of the fingers. Selene Soni MD [facility]/SIDNEY , 03:58 PM , 05:03 PM YSIEL
--- NOTE | 2018-02-02 17:11 | MB ---
cc: Selene Soni MD, Sarah E MD DATE: 02/02/2018 REASON FOR CONSULTATION: Pain and swelling, left hand. HISTORY OF PRESENT ILLNESS: Daniela Jasmine is a 27-year-old right-hand dominant female who states she does not know why she has significant pain and swelling over the left hand, but she reports worsening pain and swelling over the past week. The patient does have a past medical history significant for IV drug use with multiple track gao on the left upper extremity. She denies current drug use. She denies paresthesias in the hand. She reports significant pain and stiffness of the left hand, specifically of the left index, middle, and ring fingers. The patient was not very compliant with interview or exam. The patient was seen in the emergency room approximately 1 week ago for an abscess on her buttock, which was treated with Bactrim. She does have a past medical history significant for MRSA infections. The patient states she is not currently working, but has worked in painting in the past. The patient has been given IV antibiotics. PAST MEDICAL HISTORY: Asthma. PAST SURGICAL HISTORY: Hernia repair. ALLERGIES: AZITHROMYCIN, PENICILLIN LABORATORY DATA: White count 11.6. ESR 57, CRP 3.22. Urine tox screen negative today. HIV status pending. PHYSICAL EXAMINATION: Exam of the left hand shows the patient holding the hand with the index, middle and ring fingers flexed. The patient would perform much range of motion, but did have intact function of FDS and FDP. She would not fully extend the index, middle or ring fingers. She would not make a full fist. Sensation intact in the median, ulnar and radial distribution. Less than 2 second capillary refill. No firmness over the forearm. Multiple track gao over the left upper extremity. IMAGING STUDIES: X-rays of the hand show no significant abnormalities. MRI of the hand shows extensive tenosynovitis of the FDP tendons, worse over the middle and ring fingers. ASSESSMENT AND PLAN: A 27-year-old female with approximately 1 week of worsening pain and swelling of her left hand. MRI is concerning for infectious flexor tenosynovitis. Treatment options discussed with the patient. Infectious disease also consulted. At this time, I recommend incision and drainage of the flexor tendon sheath to obtain a culture and to hopefully improve the pain and swelling. The patient elected to proceed. Risks were explained which are not limited to wound complication, infection, sepsis, long-term stiffness and contracture of the hand, paresthesias, need for additional surgeries and she elects to proceed. This will be done at the earliest available time. MD LUZ MARIA Ferreira//armando , 03:54 PM , 04:56 PM YISEL
[2018-02-02] MEDS: MORPHINE SULFATE 2 MG/ML SYRINGE IV PUSH PRN ×2 (17:33→21:48)
[2018-02-02] MEDS: ACETAMINOPHEN/HYDROcodone 325 MG/5 MG TAB PO PRN ×2 (18:15→23:47)
[2018-02-02] MEDS ORDERED: HYDROmorphone HCL PF 2 MG/ML VIAL IV ONE (18:30)
[2018-02-02] MEDS: VANCOMYCIN 1 GM/200 ML PREMIX IV SCH (23:47)
[2018-02-03] VITALS: BP 103/58; PULSE 85; RESP 20; TEMP 98.5; O2SAT 97
[2018-02-03] MEDS: MORPHINE SULFATE 2 MG/ML SYRINGE IV PUSH PRN ×5 (06:42→22:43)
[2018-02-03 07:50] VITALS: BP 132/79; PULSE 75; RESP 20; TEMP 98.1; O2SAT 98
[2018-02-03] MEDS: CEFEPIME INJ 1,000 MG in SODIUM CHLORIDE 0.9% INJ 100 ML IV SCH (07:55)
[2018-02-03] MEDS: SODIUM CHLORIDE 0.9% FLUSH 10 ML FLUSH IV FLUSH SCH ×2 (08:05→20:15)
[2018-02-03] MEDS: DOCUSATE SODIUM 50 MG/SENNA 8.6 MG TAB PO SCH ×2 (08:05→20:15)
[2018-02-03] MEDS: ACETAMINOPHEN/HYDROcodone 325 MG/5 MG TAB PO PRN ×4 (08:14→20:15)
--- NOTE | 2018-02-03 08:59 | OTSOAPIP ---
TIME SESSION COMPLETED: AM TREATMENT TIME: 4 MINS. ELECTRONIC MEDICAL RECORD REVIEWED. PATIENT ADMITTED WITH INFECTIOUS TENOSYNOVITIS LEFT HAND WITH CONCERN FOR ABSCESS ALONG THE FLEXOR TENDON SHEATH OF THE LEFT INDEX, MIDDLE, AND RING FINGERS. SURGICAL PROCEDURE: 02/02/18 S/P * INCISION AND DRAINAGE ABSCESS FLEXOR TENDON SHEATH, LEFT INDEX FINGER. A1 RIZWANA RELEASE LEFT INDEX FINGER. * INCISION AND DRAINAGE ABSCESS AND FLEXOR TENDON SHEATH, LEFT MIDDLE FINGER. * A1 RIZWANA RELEASE LEFT MIDDLE FINGER. * INCISION AND DRAINAGE FLEXOR TENDON SHEATH, LEFT RING FINGER. * A1 RIZWANA RELEASE LEFT RING FINGER. PHYSICIAN ORDERS: RANGE OF MOTION EXERCISES LEFT HAND AFTER I&D FLEXOR TENDON SHEATHS LEFT INDEX, MIDDLE AND RING FINGERS (DR HENRIETTA PEREZ) ATTEMPTED TO SEE PATIENT THIS MORNING, PATIENT REFUSED DUE TO PAIN. PATIENT WAS EDUCATED ON THE IMPORTANCE OF THERAPY TO ENSURE MAXIMAL RECOVERY HOWEVER PATIENT CONTINUED TO REFUSE. SPOKE WITH NURSE "KJ WHO REPORTED THAT PATIENT DID RECEIVE PAIN MEDICATION TODAY. NO TREATMENT RENDER PER PATIENTS REQUEST. PLAN: WILL SEE PATIENT NEXT TREATMENT DAY. INTERDISCIPLINARY COMMUNICATION: * NURSE "KJ" WAS INFORMED PATIENT REFUSED THERAPY DUE TO PAIN. PATIENT DID RECEIVE PAIN MEDICATION PER NURSING * 8:42 AM - CONTACTED DR PEREZ VIA PHONE INFORMING THAT PATIENT REFUSED THERAPY DUE PAIN, NURSE REPORTED THAT PATIENT DID RECEIVED PAIN MEDICATION. DR PEREZ ACKNOWLEDGED INFORMATION AND WILL TALK TO PATIENT. Therapist: SAURABH SINGH/Waldemar Signature on file
[2018-02-03 09:30] LABS: AUTOMATED NEUTROPHIL # 7.6 TH/MM3 (1.8-7.7); BASOPHIL # 0.1 TH/MM3 (0-0.2); BASOPHIL % 0.5 % (0.0-2.0); EOSINOPHIL # 0.3 TH/MM3 (0-0.4); EOSINOPHIL % 2.3 % (0.0-4.0); HEMATOCRIT 34.5 % (35.0-46.0); HEMOGLOBIN 11.8 GM/DL (11.6-15.3); LYMPH % 24.1 % (9.0-44.0); LYMPHOCYTE # 2.8 TH/MM3 (1.0-4.8); MEAN CELL VOLUME 89.2 FL (80.0-100.0); MEAN CORPUSCULAR HEMOGLOBIN 30.6 PG (27.0-34.0); MEAN CORPUSCULAR HGB CONC 34.3 % (32.0-36.0); MEAN PLATELET VOLUME 8.2 FL (7.0-11.0); MONO % 6.5 % (0.0-8.0); MONOCYTE # 0.8 TH/MM3 (0-0.9); NEUT % 66.6 % (16.0-70.0); PLATELET COUNT 396 TH/MM3 (150-450); RED BLOOD COUNT 3.87 MIL/MM3 (4.00-5.30); RED CELL DISTRIBUTION WIDTH 11.8 % (11.6-17.2); WHITE BLOOD COUNT 11.6 TH/MM3 (4.0-11.0)
[2018-02-03 09:56] LABS: CHLORIDE 108 MEQ/L (98-107); SODIUM (NA) 140 MEQ/L (136-145)
--- NOTE | 2018-02-03 10:08 | HHI.PR ---
Subjective Remarks Follow-up left wrist/hand cellulitis. Postop day #1 I&D. Patient seen and examined, lying in bed with complaints of continued left hand/wrist pain. Denies any numbness or tingling. Denies any other further complaints. Patient is afebrile overnight. Continue pain control. Objective Vitals Vital Signs Date Time Temp Pulse Resp B/P (MAP) Pulse Ox O2 Delivery O2 Flow Rate FiO2 02/03/18 09:14 18 02/03/18 07:50 98.1 75 20 132/79 (96) 98 02/03/18 00:00 98.5 85 20 103/58 (73) 97 02/02/18 20:00 98.0 75 18 97/54 (68) 96 02/02/18 15:50 98.2 81 20 120/77 (91) 99 02/02/18 15:30 68 16 121/81 (94) 99 Nasal Cannula 2 02/02/18 15:15 69 02/02/18 15:15 69 16 129/81 (97) 100 Nasal Cannula 2 02/02/18 15:00 98.6 57 16 132/79 (96) 100 Room Air 02/02/18 14:45 75 16 135/88 (104) 95 Room Air 02/02/18 14:30 70 16 132/81 (98) 99 02/02/18 14:15 78 16 121/78 (92) 100 02/02/18 14:12 77 02/02/18 14:12 97.8 77 16 124/81 (95) 96 02/02/18 12:04 99.2 64 16 125/78 (94) 98 02/02/18 11:50 99.2 64 20 125/78 (94) 98 I/O 02/02/18 02/02/18 02/02/18 02/03/18 02/03/18 02/03/18 07:00 15:00 23:00 07:00 15:00 23:00 Intake Total 1300 ml 620 ml 2103 ml 680 ml Output Total 10 ml Balance 1300 ml 610 ml 2103 ml 680 ml Intake Oral 903 ml 480 ml IV Total 1300 ml 620 ml 350 ml 200 ml Other 850 ml Output Urine Total 0 ml Estimated Blood Loss 10 ml # Voids 9 3 # Bowel Movements 0 0 Result Diagram: 02/03/18 0902/03/18 0900 Imaging Last Impressions Hand X-Ray 02/02/18 0000 Signed Impressions: Service Date/Time: Friday, February 02, 2018 02:13 - CONCLUSION: Left hand series within normal limits. Mustapha Acosta MD Hand MRI 02/02/18 0000 Signed Impressions: Service Date/Time: Friday, February 02, 2018 06:11 - CONCLUSION: Extensive peritendinitis/tenosynovitis of the flexor digitorum tendons. Diffuse tendinosis of the ring finger flexor digitorum superficialis tendon. Infection is in the differential diagnosis. Mustapha Acosta MD Chest X-Ray 02/02/18 0000 Signed Impressions: Service Date/Time: Friday, February 02, 2018 02:20 - CONCLUSION: No acute cardiopulmonary disease identified. Mustapha Acosta MD Objective Remarks GENERAL: Well-developed, well-nourished patient in [facility]. SKIN: Multiple blisters and abrasions on upper and lower extremities. Buttock abrasion assessed, mild erythema, no induration, no drainage. Left hand/wrist swelling. Limited range of motion. No erythema or drainage. Multiple scabbing throughout body. HEAD: Normocephalic. Atraumatic. EYES: Pupils equal and round. No scleral icterus. No injection or drainage. ENT: No nasal bleeding or discharge. Mucous membranes pink and moist. NECK: Supple. Trachea midline. CARDIOVASCULAR: Regular rate and rhythm. S1, S2 noted. No murmur appreciated. RESPIRATORY: No accessory muscle use. Clear to auscultation. Breath sounds equal bilaterally. GASTROINTESTINAL: Abdomen soft, non-tender, nondistended. Normoactive bowel sounds x4. MUSCULOSKELETAL: No obvious deformities. Extremities without clubbing, cyanosis , or edema. NEUROLOGICAL: Awake and alert. No obvious cranial nerve deficits. Motor grossly within normal limits. 5/5 muscle strength in bilateral upper and lower extremities. PSYCHIATRIC: Patient not verbalizing, withdrawn and flat affect. A/P Problem List: (1) Bacteriuria ICD Code: R82.71 - Bacteriuria Status: Acute (2) Cellulitis of multiple sites of left hand and fingers ICD Code: L03.012 - Cellulitis of left finger; L03.114 - Cellulitis of left upper limb Status: Acute Assessment and Plan This is a 27-year-old female patient with a known medical history of IV drug abuse, asthma, tobacco abuse who presented to the ED with complaints of severe left wrist/hand swelling and pain. Cellulitis of multiple sites of left hand and fingers suspect secondary to IV drug use - Hand MRI showing extensive peritendinitis/tenosynovitis of the flexor digitorum tendons. Diffuse tendinosis of the ring finger flexor digitorum superficialis tendon. - Infectious disease has been consulted, appreciate input recommendations. Placed on Ceftin cefepime and Vanco. Will continue. - Status post NS bolus in the ED. patient tolerating p.o. intake. - Abnormal UA. Blood cultures and urine cultures pending, continue to monitor. CBC showing mild leukocytosis. We will continue to follow. Patient has been afebrile. - CRP elevated. - Chest x-ray reviewed showing no acute cardiopulmonary disease. - Control pain, IV narcotics available as needed for pain scale. As well as [place]. Supportive care. History of IV drug abuse: Drug tox negative. Encouraged cessation. DVT prophylaxis: SCDs. Discharge Planning Awaiting further infectious disease and hand surgery recommendations. Fanny Gray Feb 03, 2018 10:08
[2018-02-03 10:36] LABS: ALBUMIN 2.6 GM/DL (3.4-5.0); ALKALINE PHOSPHATASE 90 U/L (45-117); ALT (GPT) 15 U/L (10-53); AST (GOT) 25 U/L (15-37); BICARBONATE 25.2 MEQ/L (21.0-32.0); BLOOD UREA NITROGEN 9 MG/DL (7-18); CALCIUM 8.2 MG/DL (8.5-10.1); CREATININE 0.63 MG/DL (0.50-1.00); GLOMERULAR FILTRATION RATE 113 ML/MIN (>89); GLUCOSE,RANDOM 136 MG/DL (74-106); TOTAL BILIRUBIN ADULT 0.3 MG/DL (0.2-1.0); TOTAL PROTEIN 7.3 GM/DL (6.4-8.2)
[2018-02-03] MEDS ORDERED: PHARMACY ORDERED LAB ONE (11:45)
[2018-02-03 11:50] VITALS: BP 121/83; PULSE 79; RESP 20; TEMP 97.6; O2SAT 97
[2018-02-03] MEDS: VANCOMYCIN 1 GM/200 ML PREMIX IV SCH (12:20)
--- NOTE | 2018-02-03 15:45 | PD.ORT.PN ---
Subjective Subjective Remarks Patient reports persistent pain in hand but improved pain in the wrist. Denies paresthesias. Objective Vitals Vital Signs Date Time Temp Pulse Resp B/P (MAP) Pulse Ox O2 Delivery O2 Flow Rate FiO2 02/03/18 11:50 97.6 79 20 121/83 (96) 97 02/03/18 09:14 18 02/03/18 07:50 98.1 75 20 132/79 (96) 98 02/03/18 00:00 98.5 85 20 103/58 (73) 97 02/02/18 20:00 98.0 75 18 97/54 (68) 96 02/02/18 15:50 98.2 81 20 120/77 (91) 99 I/O 02/02/18 02/02/18 02/02/18 02/03/18 02/03/18 02/03/18 07:00 15:00 23:00 07:00 15:00 23:00 Intake Total 1300 ml 620 ml 2103 ml 680 ml 300 ml Output Total 10 ml Balance 1300 ml 610 ml 2103 ml 680 ml 300 ml Intake Oral 903 ml 480 ml IV Total 1300 ml 620 ml 350 ml 200 ml 300 ml Other 850 ml Output Urine Total 0 ml Estimated Blood Loss 10 ml # Voids 9 3 # Bowel Movements 0 0 Result Diagram: 02/03/18 0900 02/03/18 0900 Imaging Last 24 hours Impressions Hand X-Ray 02/02/18 Signed Impressions: Service Date/Time: Friday, February 02, 2018 02:13 - CONCLUSION: Left hand series within normal limits. Mustapha Acosta MD Hand MRI 02/02/18 Signed Impressions: Service Date/Time: Friday, February 02, 2018 06:11 - CONCLUSION: Extensive peritendinitis/tenosynovitis of the flexor digitorum tendons. Diffuse tendinosis of the ring finger flexor digitorum superficialis tendon. Infection is in the differential diagnosis. Mustapha Acosta MD Chest X-Ray 02/02/18 Signed Impressions: Service Date/Time: Friday, February 02, 2018 02:20 - CONCLUSION: No acute cardiopulmonary disease identified. Mustapha Acosta MD Objective Remarks Dressing in place, <2 sec capillary refill to fingers, able to flex/extend fingers but with pain to index, middle, and ring fingers, sensation intact in median/ulnar/radial distribution Assessment & Plan Assessment and Plan 27yF POD1 s/p I&D left hand including A1 maria victoria releases and debridement flexor tendon sheaths left index, middle, and ring fingers with clear fluid and tenosynovitis intraop -Initial culture + MRSA, appreciate ID input -Elevate hand and work on gentle range of motion, Patient refused to work with OT today. Discussed with patient importance of compliance with OT -Nursing to change dressing daily starting 02/04 -will continue to follow Selene Soni MD Feb 03, 2018 15:45
[2018-02-03 16:00] VITALS: BP 121/80; PULSE 82; RESP 20; TEMP 98.1; O2SAT 100
--- NOTE | 2018-02-03 17:31 | HHI.IDPN ---
Subjective Subjective Remarks ID FU DR REYNA S/P LEFT WRIST I&D CULTURE + MRSA Antibiotics CEFEPIME/ VANCOMYCIN (Siena Samaniego) Antibiotics Vancomycin and Cipro (Joy Reyna MD) Allergies: Coded Allergies: azithromycin (Unverified Allergy, Intermediate, hives, 02/02/18) penicillin G (Unverified Allergy, Intermediate, RASH, 02/02/18) Objective . Vital Signs Date Time Temp Pulse Resp B/P (MAP) Pulse Ox O2 Delivery O2 Flow Rate FiO2 02/03/18 11:50 97.6 79 20 121/83 (96) 97 02/03/18 09:14 18 02/03/18 07:50 98.1 75 20 132/79 (96) 98 02/03/18 00:00 98.5 85 20 103/58 (73) 97 02/02/18 20:00 98.0 75 18 97/54 (68) 96 02/03/18 02/03/18 02/04/18 15:00 23:00 07:00 Intake Total 300 ml Balance 300 ml IV Total 300 ml . Laboratory Tests Test 02/02/18 02:40 02/03/18 09:00 White Blood Count 11.6 TH/MM3 11.6 TH/MM3 Red Blood Count 3.96 MIL/MM3 3.87 MIL/MM3 Hemoglobin 11.7 GM/DL 11.8 GM/DL Hematocrit 35.3 % 34.5 % Mean Corpuscular Volume 89.2 FL 89.2 FL Mean Corpuscular Hemoglobin 29.5 PG 30.6 PG Mean Corpuscular Hemoglobin Concent 33.1 % 34.3 % Red Cell Distribution Width 11.5 % 11.8 % Platelet Count 395 TH/MM3 396 TH/MM3 Mean Platelet Volume 8.2 FL 8.2 FL Neutrophils (%) (Auto) 66.2 % 66.6 % Lymphocytes (%) (Auto) 22.8 % 24.1 % Monocytes (%) (Auto) 6.0 % 6.5 % Eosinophils (%) (Auto) 3.9 % 2.3 % Basophils (%) (Auto) 1.1 % 0.5 % Neutrophils # (Auto) 7.7 TH/MM3 7.6 TH/MM3 Lymphocytes # (Auto) 2.6 TH/MM3 2.8 TH/MM3 Monocytes # (Auto) 0.7 TH/MM3 0.8 TH/MM3 Eosinophils # (Auto) 0.5 TH/MM3 0.3 TH/MM3 Basophils # (Auto) 0.1 TH/MM3 0.1 TH/MM3 CBC Comment DIFF FINAL DIFF FINAL Differential Comment Erythrocyte Sedimentation Rate 57 mm/hr Laboratory Tests Test 02/02/18 02:40 02/03/18 09:00 Blood Urea Nitrogen 17 MG/DL 9 MG/DL Creatinine 0.76 MG/DL 0.63 MG/DL Random Glucose 106 MG/DL 136 MG/DL Calcium Level 9.2 MG/DL 8.2 MG/DL Sodium Level 135 MEQ/L 140 MEQ/L Potassium Level 3.7 MEQ/L 3.6 MEQ/L Chloride Level 102 MEQ/L 108 MEQ/L Carbon Dioxide Level 25.4 MEQ/L 25.2 MEQ/L Anion Gap 8 MEQ/L 7 MEQ/L Estimat Glomerular Filtration Rate 91 ML/MIN 113 ML/MIN Lactic Acid Level 1.0 mmol/L C-Reactive Protein 3.72 MG/DL Total Protein 7.3 GM/DL Albumin 2.6 GM/DL Alkaline Phosphatase 90 U/L Aspartate Amino Transf (AST/SGOT) 25 U/L Alanine Aminotransferase (ALT/SGPT) 15 U/L Total Bilirubin 0.3 MG/DL Microbiology Date/Time Source Procedure Growth Status 02/02/18 02:40 Blood Peripheral Aerobic Blood Culture - Preliminary NO GROWTH IN 1 DAY Resulted 02/02/18 02:40 Blood Peripheral Anaerobic Blood Culture - Preliminary NO GROWTH IN 1 DAY Resulted 02/02/18 02:30 Blood Peripheral Aerobic Blood Culture - Preliminary NO GROWTH IN 1 DAY Resulted 02/02/18 02:30 Blood Peripheral Anaerobic Blood Culture - Preliminary NO GROWTH IN 1 DAY Resulted 02/02/18 14:30 Fluid Other Fungal Smear - Final NO FUNGAL ELEMENTS SEEN. Resulted 02/02/18 14:30 Fluid Other Fungal Culture Pending Resulted 02/02/18 14:30 Fluid Other Acid Fast Stain Pending Received 02/02/18 14:30 Fluid Other Mycobacterial Culture Pending Received 02/02/18 14:30 Fluid Other Gram Stain - Final Resulted 02/02/18 14:30 Body Fluid Culture - Preliminary S. Aureus Mrsa Resulted 02/02/18 14:30 Fluid Other Fungal Smear - Final NO FUNGAL ELEMENTS SEEN. Resulted 02/02/18 14:30 Fluid Other Fungal Culture Pending Resulted 02/02/18 14:30 Fluid Other Acid Fast Stain Pending Received 02/02/18 14:30 Fluid Other Mycobacterial Culture Pending Received 02/02/18 14:30 Fluid Other Gram Stain - Final Resulted 02/02/18 14:30 Fluid Other Body Fluid Culture - Preliminary NO GROWTH IN 24 HOURS. Resulted 02/02/18 03:00 Urine Clean Catch Urine Culture - Preliminary Gram Negative [place] Resulted 02/02/18 14:30 Wound Finger Fungal Smear - Final NO FUNGAL ELEMENTS SEEN. Resulted 02/02/18 14:30 Wound Finger Fungal Culture Pending Resulted 02/02/18 14:30 Wound Finger Acid Fast Stain Pending Received 02/02/18 14:30 Wound Finger Mycobacterial Culture Pending Received 02/02/18 14:30 Wound Finger Gram Stain - Final Resulted 02/02/18 14:30 Wound Finger Wound Culture - Preliminary NO GROWTH IN 24 HOURS. Resulted Physical Exam LETHARGIC / AROUSES PERRL CHEST CTA CARDIAC RRR ABD SOFT EXT. LEFT WRIST + DRSG DRY (Siena Samaniego) Assessment & Plan Diagnosis: (1) Bacteriuria ICD Codes: R82.71 - Bacteriuria Status: Acute (2) Cellulitis of multiple sites of left hand and fingers ICD Codes: L03.012 - Cellulitis of left finger; L03.114 - Cellulitis of left upper limb Status: Acute Plan: cipro/ vancomycin Further orders to follow (Siena Samaniego) Siena Samaniego Feb 03, 2018 17:31 Joy Reyna MD Feb 03, 2018 21:33
[2018-02-03 20:00] VITALS: BP 107/63; PULSE 65; RESP 16; TEMP 98.1; O2SAT 99
[2018-02-03] MEDS: CIPROFLOXACIN/DEXT 400 MG/200 ML IV SCH (20:16)
[2018-02-03] MEDS: VANCOMYCIN INJ 850 MG in SODIUM CHLOR 0.9% 250 ML INJ 250 ML IV SCH (20:16)
[2018-02-03] MEDS: SODIUM CHLORIDE 0.9% FLUSH 10 ML FLUSH IV FLUSH PRN (22:44)
[2018-02-04] VITALS: BP 100/66; PULSE 73; RESP 18; TEMP 98.6; O2SAT 97
[2018-02-04] MEDS: ACETAMINOPHEN/HYDROcodone 325 MG/5 MG TAB PO PRN ×5 (00:46→21:11)
[2018-02-04] MEDS: MORPHINE SULFATE 2 MG/ML SYRINGE IV PUSH PRN ×4 (01:45→12:19)
[2018-02-04] MEDS: SODIUM CHLORIDE 0.9% FLUSH 10 ML FLUSH IV FLUSH PRN ×4 (01:46→21:25)
[2018-02-04] MEDS: VANCOMYCIN INJ 850 MG in SODIUM CHLOR 0.9% 250 ML INJ 250 ML IV SCH ×3 (04:18→20:30)
[2018-02-04 08:00] VITALS: BP 96/55; PULSE 59; RESP 16; TEMP 97; O2SAT 99
[2018-02-04] MEDS: DOCUSATE SODIUM 50 MG/SENNA 8.6 MG TAB PO SCH ×2 (08:17→20:31)
[2018-02-04] MEDS: CIPROFLOXACIN/DEXT 400 MG/200 ML IV SCH ×2 (08:17→20:32)
[2018-02-04] MEDS: SODIUM CHLORIDE 0.9% FLUSH 10 ML FLUSH IV FLUSH SCH ×2 (08:17→20:31)
--- NOTE | 2018-02-04 11:04 | HHI.IDPN ---
Subjective Subjective Remarks ID FU DR REYNA S/P LEFT WRIST I&D DAY 2 CULTURE + MRSA C/O PAIN BUT OVER ALL FEELING BETTER Antibiotics Vancomycin and Cipro (Aden,Siena LEE) Allergies: Coded Allergies: azithromycin (Unverified Allergy, Intermediate, hives, 02/02/18) penicillin G (Unverified Allergy, Intermediate, RASH, 02/02/18) Objective . Vital Signs Date Time Temp Pulse Resp B/P (MAP) Pulse Ox O2 Delivery O2 Flow Rate FiO2 02/04/18 08:26 16 02/04/18 08:00 97.0 59 16 96/55 (69) 99 02/04/18 07:30 16 02/04/18 00:00 98.6 73 18 100/66 (77) 97 02/03/18 20:00 98.1 65 16 107/63 (78) 99 02/03/18 16:00 98.1 82 20 121/80 (94) 100 02/03/18 11:50 97.6 79 20 121/83 (96) 97 . Laboratory Tests Test 02/03/18 09:00 White Blood Count 11.6 TH/MM3 Red Blood Count 3.87 MIL/MM3 Hemoglobin 11.8 GM/DL Hematocrit 34.5 % Mean Corpuscular Volume 89.2 FL Mean Corpuscular Hemoglobin 30.6 PG Mean Corpuscular Hemoglobin Concent 34.3 % Red Cell Distribution Width 11.8 % Platelet Count 396 TH/MM3 Mean Platelet Volume 8.2 FL Neutrophils (%) (Auto) 66.6 % Lymphocytes (%) (Auto) 24.1 % Monocytes (%) (Auto) 6.5 % Eosinophils (%) (Auto) 2.3 % Basophils (%) (Auto) 0.5 % Neutrophils # (Auto) 7.6 TH/MM3 Lymphocytes # (Auto) 2.8 TH/MM3 Monocytes # (Auto) 0.8 TH/MM3 Eosinophils # (Auto) 0.3 TH/MM3 Basophils # (Auto) 0.1 TH/MM3 CBC Comment DIFF FINAL Differential Comment Laboratory Tests Test 02/03/18 09:00 Blood Urea Nitrogen 9 MG/DL Creatinine 0.63 MG/DL Random Glucose 136 MG/DL Total Protein 7.3 GM/DL Albumin 2.6 GM/DL Calcium Level 8.2 MG/DL Alkaline Phosphatase 90 U/L Aspartate Amino Transf (AST/SGOT) 25 U/L Alanine Aminotransferase (ALT/SGPT) 15 U/L Total Bilirubin 0.3 MG/DL Sodium Level 140 MEQ/L Potassium Level 3.6 MEQ/L Chloride Level 108 MEQ/L Carbon Dioxide Level 25.2 MEQ/L Anion Gap 7 MEQ/L Estimat Glomerular Filtration Rate 113 ML/MIN Microbiology Date/Time Source Procedure Growth Status 02/02/18 02:40 Blood Peripheral Aerobic Blood Culture - Preliminary NO GROWTH IN 1 DAY Resulted 02/02/18 02:40 Blood Peripheral Anaerobic Blood Culture - Preliminary NO GROWTH IN 1 DAY Resulted 02/02/18 02:30 Blood Peripheral Aerobic Blood Culture - Preliminary NO GROWTH IN 1 DAY Resulted 02/02/18 02:30 Blood Peripheral Anaerobic Blood Culture - Preliminary NO GROWTH IN 1 DAY Resulted 02/02/18 14:30 Fluid Other Fungal Smear - Final NO FUNGAL ELEMENTS SEEN. Resulted 02/02/18 14:30 Fluid Other Fungal Culture Pending Resulted 02/02/18 14:30 Fluid Other Acid Fast Stain Pending Received 02/02/18 14:30 Fluid Other Mycobacterial Culture Pending Received 02/02/18 14:30 Fluid Other Gram Stain - Final Resulted 02/02/18 14:30 Body Fluid Culture - Preliminary S. Aureus Mrsa Resulted 02/02/18 14:30 Fluid Other Fungal Smear - Final NO FUNGAL ELEMENTS SEEN. Resulted 02/02/18 14:30 Fluid Other Fungal Culture Pending Resulted 02/02/18 14:30 Fluid Other Acid Fast Stain Pending Received 02/02/18 14:30 Fluid Other Mycobacterial Culture Pending Received 02/02/18 14:30 Fluid Other Gram Stain - Final Resulted 02/02/18 14:30 Fluid Other Body Fluid Culture - Preliminary NO GROWTH IN 24 HOURS. Resulted 02/02/18 03:00 Urine Clean Catch Urine Culture - Final Escherichia Coli Pseudomonas Aeruginosa Complete 02/02/18 14:30 Wound Finger Fungal Smear - Final NO FUNGAL ELEMENTS SEEN. Resulted 02/02/18 14:30 Wound Finger Fungal Culture Pending Resulted 02/02/18 14:30 Wound Finger Acid Fast Stain Pending Received 02/02/18 14:30 Wound Finger Mycobacterial Culture Pending Received 02/02/18 14:30 Wound Finger Gram Stain - Final Resulted 02/02/18 14:30 Wound Finger Wound Culture - Preliminary NO GROWTH IN 24 HOURS. Resulted Physical Exam LETHARGIC / AROUSES PERRL CHEST CTA CARDIAC RRR ABD SOFT EXT. LEFT WRIST + DRSG DRY (Siena Samaniego) Assessment & Plan Diagnosis: (1) Bacteriuria ICD Codes: R82.71 - Bacteriuria Status: Acute (2) Cellulitis of multiple sites of left hand and fingers ICD Codes: L03.012 - Cellulitis of left finger; L03.114 - Cellulitis of left upper limb Status: Acute Plan: cipro/ vancomycin Further orders to follow likely cipro/zyvox on dc will monitor and fu (Siena Samaniego) Remarks Follow Blood cultures Continue IV Vancomycin and PO Cipro for now If blood cultures remain negative- should be able to do PO antibiotics on discharge (Joy Reyna MD) Siena Samaniego Feb 04, 2018 11:04 Joy Reyna MD Feb 04, 2018 15:05
[2018-02-04] MEDS ORDERED: PHARMACY ORDERED LAB ONE (11:45)
[2018-02-04 12:00] VITALS: BP 117/78; PULSE 78; RESP 16; TEMP 96.9; O2SAT 98
--- NOTE | 2018-02-04 13:00 | HHI.PR ---
Subjective Remarks Patient seen and examined today for follow-up on left hand cellulitis, tenosynovitis. Patient is status post surgical intervention. She is laying in bed comfortably. Denies any new complaints. States the pain is controlled on medication. Nursing staff indicates that her IV is malfunctioning at this time. Indicating that she is allergic to morphine and needs to have Dilaudid. Patient remains afebrile Objective Vitals Vital Signs Date Time Temp Pulse Resp B/P (MAP) Pulse Ox O2 Delivery O2 Flow Rate FiO2 02/04/18 12:51 18 02/04/18 08:00 97.0 59 16 96/55 (69) 99 02/04/18 07:30 16 02/04/18 00:00 98.6 73 18 100/66 (77) 97 02/03/18 20:00 98.1 65 16 107/63 (78) 99 02/03/18 16:00 98.1 82 20 121/80 (94) 100 I/O 02/03/18 02/03/18 02/03/18 02/04/18 02/04/18 02/04/18 07:00 15:00 23:00 07:00 15:00 23:00 Intake Total 680 ml 300 ml 1499 ml 258 ml Balance 680 ml 300 ml 1499 ml 258 ml Intake Oral 480 ml 1041 ml IV Total 200 ml 300 ml 458 ml 258 ml # Voids 3 4 # Bowel Movements 0 1 Result Diagram: 02/03/18 0900 02/03/18 0900 Objective Remarks GENERAL: Well-developed, well-nourished, in no acute distress. alert and orientated HEENT: Head is normocephalic without any lesions or masses noted. Facial features are symmetric. Eyes: Extraocular muscles are intact. Conjunctivae were clear. NECK: Supple without any masses. Trachea midline no deviation. No JVD, CARDIAC: Regular rhythm, regular rate. S1/S2 are heard. No murmurs gallops or rubs. LUNGS: Clear to auscultation bilaterally. No wheeze, rhonchi or rales. No use of accessory muscles on inspiration or expiration. ABDOMEN: Soft, nontender. Nondistended. Bowel sounds heard in all 4 quadrants. No organomegaly or masses. Negative rebound, negative guarding EXTREMITIES: No edema, pulses are equal bilaterally. No cyanosis or clubbing NEUROLOGY: Mood and affect appear appropriate. Cranial nerves II through XII grossly intact. Moving all extremities, speech is clear Urinary Catheter: No Vascular Central Line Catheter: No A/P Assessment and Plan Cellulitis of multiple sites of left hand and fingers, complicated by patient's IV drug use history Hand MRI showing extensive peritendinitis/tenosynovitis of the flexor digitorum tendons. Diffuse tendinosis of the ring finger flexor digitorum superficialis tendon. Hand specialist consulted and did perform surgical intervention Infectious disease has been consulted, patient continued on Cipro/vancomycin Infectious disease note indicate patient likely discharge on p.o. Cipro/Zyvox Continue pain control, discontinue IV pain medicine, keep arm elevated Urinary tract infection Urine culture with pansensitive E. coli and Pseudomonas Patient is on Zosyn and Cipro Will need to discuss with infectious disease of duration and treatment History of IV drug abuse: Urine drug screen was negative Encouraged cessation. DVT prevention Sequential compression devices Discharge Planning Discharge planning home with p.o. antibiotics once cleared by hand specialist and infectious disease Marlo Randall Feb 04, 2018 13:00
[2018-02-04 16:00] VITALS: BP 106/62; PULSE 73; RESP 16; TEMP 97.6; O2SAT 98
[2018-02-04 20:00] VITALS: BP 128/77; PULSE 69; RESP 18; TEMP 97.7; O2SAT 100
[2018-02-04] MEDS: ZOLPIDEM TARTRATE 5 MG TAB PO ONE (21:15)
[2018-02-04] MEDS ORDERED: MORPHINE SULFATE 2 MG/ML SYRINGE IV PUSH ONE (21:15)
[2018-02-05] VITALS: BP 106/64; PULSE 76; RESP 20; TEMP 97.1; O2SAT 99
[2018-02-05] MEDS: ACETAMINOPHEN/HYDROcodone 325 MG/5 MG TAB PO PRN ×3 (01:37→12:33)
[2018-02-05] MEDS: ZOLPIDEM TARTRATE 5 MG TAB PO ONE (01:47)
[2018-02-05] MEDS: SODIUM CHLORIDE 0.9% FLUSH 10 ML FLUSH IV FLUSH PRN (04:11)
[2018-02-05] MEDS: VANCOMYCIN INJ 850 MG in SODIUM CHLOR 0.9% 250 ML INJ 250 ML IV SCH ×2 (04:11→12:33)
[2018-02-05 08:00] VITALS: BP 114/73; PULSE 74; RESP 16; TEMP 98.7; O2SAT 96
[2018-02-05] MEDS: SODIUM CHLORIDE 0.9% FLUSH 10 ML FLUSH IV FLUSH SCH (09:00)
[2018-02-05] MEDS: CIPROFLOXACIN/DEXT 400 MG/200 ML IV SCH (09:16)
[2018-02-05] MEDS: DOCUSATE SODIUM 50 MG/SENNA 8.6 MG TAB PO SCH (09:17)
--- NOTE | 2018-02-05 11:25 | HHI.IDPN ---
Subjective Subjective Remarks ID FU DR CRAWFORD S/P LEFT WRIST I&D DAY 2 CULTURE + MRSA C/O PAIN Antibiotics Vancomycin and Cipro Allergies: Coded Allergies: azithromycin (Unverified Allergy, Intermediate, hives, 02/02/18) penicillin G (Unverified Allergy, Intermediate, RASH, 02/02/18) Objective . Vital Signs Date Time Temp Pulse Resp B/P (MAP) Pulse Ox O2 Delivery O2 Flow Rate FiO2 02/05/18 08:00 98.7 74 16 114/73 (87) 96 02/05/18 00:00 97.1 76 20 106/64 (78) 99 02/04/18 20:00 97.7 69 18 128/77 (94) 100 02/04/18 18:35 16 02/04/18 16:00 97.6 73 16 106/62 (77) 98 02/04/18 12:51 18 02/04/18 12:00 96.9 78 16 117/78 (91) 98 . GRAM STAIN Final 02/03/18-0917 RARE WBC NO ORGANISMS SEEN FLUID CULTURE Final 02/04/18-1136 HEAVY GROWTH S. AUREUS MRSA This organism should be considered resistant to other Beta lactam agents, ie, penicillins, Beta-lactam/Beta-lactamase inhibitor combinations, carbapenems, and cephems (with the exception of cephalosporins with anti-MRSA activity). NO ANAEROBES ISOLATED CONTINUED ON NEXT PAGE RUN DATE: 02/04/18 [facility] LIVE PAGE 2 RUN TIME: [id number] [address] DOCTOR REPORT PATIENT Patient: ARAMJARED Conti MARILU #[id number] (Continued) Specimen: [id number] Collected: 02/02/18-1430 Received: 02/02/18-1615 (Continued) Procedure Result Verified Site FLUID CULTURE Final (continued) 02/04/18-1136 STAPH MRSA M.I.C. RX --------- --- PENICILLIN G >8 R OXACILLIN >2 R CEFAZOLIN <4 R CEFTRIAXONE 8 R GENTAMICIN <1 S ERYTHROMYCIN >4 R CLINDAMYCIN <0.25 S DAPTOMYCIN 0.5 S VANCOMYCIN 2 S TETRACYCLINE <1 S CHLORAMPHENICOL <8 S TRIMETH/SULFA <0.5/9.5 S LEVOFLOXACIN <0.5 S LINEZOLID 2 S RIFAMPIN <1 S Microbiology Date/Time Source Procedure Growth Status 02/02/18 14:30 Fluid Other Fungal Smear - Final NO FUNGAL ELEMENTS SEEN. Resulted 02/02/18 14:30 Fluid Other Fungal Culture Pending Resulted 02/02/18 14:30 Fluid Other Acid Fast Stain - Final NO ACID FAST BACILLI SEEN Resulted 02/02/18 14:30 Fluid Other Mycobacterial Culture Pending Resulted 02/02/18 14:30 Fluid Other Gram Stain - Final Complete 02/02/18 14:30 Body Fluid Culture - Final S. Aureus Mrsa Complete 02/02/18 14:30 Fluid Other Fungal Smear - Final NO FUNGAL ELEMENTS SEEN. Resulted 02/02/18 14:30 Fluid Other Fungal Culture Pending Resulted 02/02/18 14:30 Fluid Other Acid Fast Stain - Final NO ACID FAST BACILLI SEEN Resulted 02/02/18 14:30 Fluid Other Mycobacterial Culture Pending Resulted 02/02/18 14:30 Fluid Other Gram Stain - Final Resulted 02/02/18 14:30 Fluid Other Body Fluid Culture - Preliminary NO GROWTH IN 48 HOURS. Resulted 02/02/18 14:30 Wound Finger Fungal Smear - Final NO FUNGAL ELEMENTS SEEN. Resulted 02/02/18 14:30 Wound Finger Fungal Culture Pending Resulted 02/02/18 14:30 Wound Finger Acid Fast Stain - Final NO ACID FAST BACILLI SEEN Resulted 02/02/18 14:30 Wound Finger Mycobacterial Culture Pending Resulted 02/02/18 14:30 Wound Finger Gram Stain - Final Complete 02/02/18 14:30 Wound Finger Wound Culture - Final NO GROWTH IN 72 HRS.--AEROBICALLY OR ... Complete Imaging Last Impressions Hand X-Ray 02/02/18 0000 Signed Impressions: Service Date/Time: Friday, February 02, 2018 02:13 - CONCLUSION: Left hand series within normal limits. Mustapha Acosta MD Hand MRI 02/02/18 0000 Signed Impressions: Service Date/Time: Friday, February 02, 2018 06:11 - CONCLUSION: Extensive peritendinitis/tenosynovitis of the flexor digitorum tendons. Diffuse tendinosis of the ring finger flexor digitorum superficialis tendon. Infection is in the differential diagnosis. Mustapha Acosta MD Chest X-Ray 02/02/18 Signed Impressions: Service Date/Time: Friday, February 02, 2018 02:20 - CONCLUSION: No acute cardiopulmonary disease identified. Mustapha Acosta MD Physical Exam NAD, awake SKIN: multiple scabbed lesions PERRL CHEST CTA CARDIAC RRR, no murmurs ABD SOFT EXT. LEFT hand with swollen fingers no ascending lymphangitis or cellulitis NEURO: awake, alert non focal PSYCH: very irritable, got very upset when was asked about IVDU Assessment & Plan Remarks Infectious tenosynovitis left hand with concern for abscess along the flexor tendon sheath of the left index, middle, and ring fingers. Asyptomatic bacteriuria, UA w/o purulence dc cipro cont vancomycin When claerded by hand switch to oral abx Mary Jimenez MD Feb 05, 2018 11:25
[2018-02-05 13:33] VITALS: RESP 18
--- NOTE | 2018-02-05 13:57 | HHI.PR ---
Addendum to Inpatient Note Additional Information cleared by hand sx willc ont with oral clinda x 2 weeks Mary Jimenez MD Feb 05, 2018 13:57
[2018-02-05] MEDS ORDERED: CLIN300C5 PO (14:00)
--- NOTE | 2018-02-05 14:22 | HHI.DCPOC ---
Discharge Care Plan Diagnosis: (1) Cellulitis of multiple sites of left hand and fingers Goals to Promote Your Health * To prevent worsening of your condition and complications * To maintain your health at the optimal level Directions to Meet Your Goals Take your medications as prescribed Follow your dietary instruction Follow activity as directed Keep your appointments as scheduled Take your immunizations and boosters as scheduled If your symptoms worsen call your PCP, if no PCP go to Urgent Care Center or Emergency Room Smoking is Dangerous to Your Health. Avoid second hand smoke Call the 24-hour hour crisis hotline for domestic abuse at Marlo Randall Feb 05, 2018 14:22
[2018-02-05] MEDS ORDERED: HYDR-3516 PO (14:25)
--- NOTE | 2018-02-05 14:31 | HHI.DS ---
Discharge Summary Admission Date Feb 02, 2018 at 04:43 Discharge Date: Feb 05, 2018 Admitting Diagnosis Cellulitis/tenosynovitis L hand (1) Bacteriuria ICD Code: R82.71 - Bacteriuria Status: Acute (2) Cellulitis of multiple sites of left hand and fingers ICD Code: L03.012 - Cellulitis of left finger; L03.114 - Cellulitis of left upper limb Status: Acute Procedures PROCEDURE PERFORMED: 1. Incision and drainage abscess flexor tendon sheath, left index finger. 2. A1 maria victoria release, left index finger. 3. Incision and drainage abscess and flexor tendon sheath, left middle finger. 4. A1 maria victoria release, left middle finger. 5. Incision and drainage flexor tendon sheath, left ring finger. 6. A1 maria victoria release, left ring finger. Brief History - From Admission This is a 27-year-old female patient with a known medical history of IV drug abuse, asthma, tobacco abuse who presented to the ED with complaints of severe left wrist/hand swelling and pain. Patient seen and examined in hospital room with friend at bedside, patient is not verbalizing, rather uncooperative and not responding or answering to any of the questions asked. Friend at bedside is assisting with retrieving medical history. Supposedly patient presented to the ED 1 week ago for a buttock abscess suspected secondary to a spider bite that was drained in ED and prescribed Bactrim. Supposedly patient had delays in retrieving antibiotic and did not take full course of antibiotic. Since that time patient developed a left hand swelling and pain as well as the development of multiple blisters and sores over both bilateral upper and lower extremities. She also complained of left axillary tenderness. When inquired about IV drug abuse her friend at bedside states that is a violation of privacy and he will not disclose this information. Drug tox is negative. Patient is not answering question. Patient is presented with multiple areas of small abscesses and drainage. She does complain of pain to movement or palpation of wrist. There are reports of subjective fevers and chills as well as diaphoresis. Denies any recent weight loss. CBC/BMP: 02/03/18 0900 4/8/18 0900 Significant Findings Laboratory Tests Test 02/03/18 09:00 02/04/18 12:08 White Blood Count 11.6 TH/MM3 (4.0-11.0) Red Blood Count 3.87 MIL/MM3 (4.00-5.30) Hematocrit 34.5 % (35.0-46.0) Random Glucose 136 MG/DL (74-106) Albumin 2.6 GM/DL (3.4-5.0) Calcium Level 8.2 MG/DL (8.5-10.1) Chloride Level 108 MEQ/L (98-107) Imaging Last Impressions Hand X-Ray 02/02/18 0000 Signed Impressions: Service Date/Time: Friday, February 02, 2018 02:13 - CONCLUSION: Left hand series within normal limits. Mustapha Acosta MD Hand MRI 02/02/18 0000 Signed Impressions: Service Date/Time: Friday, February 02, 2018 06:11 - CONCLUSION: Extensive peritendinitis/tenosynovitis of the flexor digitorum tendons. Diffuse tendinosis of the ring finger flexor digitorum superficialis tendon. Infection is in the differential diagnosis. Mustapha Acosta MD Chest X-Ray 02/02/18 0000 Signed Impressions: Service Date/Time: Friday, February 02, 2018 02:20 - CONCLUSION: No acute cardiopulmonary disease identified. Mustapha Acosta MD PE at Discharge GENERAL: Well-developed, well-nourished, in no acute distress. alert and orientated HEENT: Head is normocephalic without any lesions or masses noted. Facial features are symmetric. Eyes: Extraocular muscles are intact. Conjunctivae were clear. NECK: Supple without any masses. Trachea midline no deviation. No JVD, CARDIAC: Regular rhythm, regular rate. S1/S2 are heard. No murmurs gallops or rubs. LUNGS: Clear to auscultation bilaterally. No wheeze, rhonchi or rales. No use of accessory muscles on inspiration or expiration. ABDOMEN: Soft, nontender. Nondistended. Bowel sounds heard in all 4 quadrants. No organomegaly or masses. Negative rebound, negative guarding EXTREMITIES: No edema, pulses are equal bilaterally. No cyanosis or clubbing NEUROLOGY: Mood and affect appear appropriate. Cranial nerves II through XII grossly intact. Moving all extremities, speech is clear Hospital Course This is a 27-year-old female with known history of IV drug abuse, asthma who presented emergency department because severe left wrist and hand swelling. Patient had evaluation done in the emergency department and apparently when initially approached by hospitalist patient was not verbalizing, uncooperative and not responding to any questions. Her friend at bedside was assisting in giving information and as indicated that when inquired about IV drug use that it was a violation of her privacy that she did not have to answer that question. Patient did have workup done in the hospital which did indicate cellulitis with tendon involvement of the left hand. MRI was performed which did show extensive peritendinitis/10 synovitis of the flexor digitorum tendons. Diffuse tendinosis of the ring finger flexor digitorum superficialis tendon. Infection and differential diagnosis. Hand specialist was consulted who took the patient to the OR and performed incision and drainage of the hand. Patient continued on antibiotics include Cipro/vancomycin for underlying infection. Patient did have a urinary tract infection with E. coli and pseudomonas aeruginosa. Patient did have one fluid culture from the hand grow MRSA. Infectious disease was consulted and follow the patient and made antibiotic recommendations. Cipro has been discontinued at this time. Recommending switch to p.o. antibiotics once patient is cleared for discharge. Discussed with hand specialist at this time who indicated the patient is clear for discharge. Patient may follow-up in her office in 2 weeks in which at that time she will remove the stitches. I discussed with infectious disease who reviewed the records and wrote a prescription for clindamycin 300 mg every 6 hours for 14 days. Patient is clinically stable at this time. We will plan discharge accordingly with appropriate outpatient follow-up. Pt Condition on Discharge: Stable Discharge Disposition: Discharge Home Discharge Time: > 30 minutes Discharge Instructions DIET: Follow Instructions for: As Tolerated, No Restrictions Activities you can perform: Regular-No Restrictions Follow up Referrals: Hand Surgery - [address] Soni PCP Follow-up - 1 Week New Medications: Clindamycin (Clindamycin) 300 Mg Cap 300 MG PO Q6H for Infection for 14 Days, #56 CAP 0 Refills Hydrocodone/Acetaminophen (Hydrocodone-Acetamin 5-325 mg) 5 Mg-325 Mg Tablet 1 TAB PO Q4H PRN for pain, #12 TAB Marlo Randall Feb 05, 2018 14:31
== END 2018-02-05 16:00 | disposition home or self-care (01) | DRG 501 ==
LOC: PHED 01:29 → PHEDA 04:43 → PH3B 07:40 → PH3A 07:42
PROVIDERS: ADMIT Hospitalist; ATTEND Hospitalist
PROC: 0LN80ZZ Release Left Hand Tendon, Open Approach (ICD-10-PCS; 2018-02-02)
PROC: 0K9 Muscles, Drainage (ICD-10-PCS; principal; 2018-02-02 12:47)
DX: M65.142 Other infective (teno)synovitis, left hand (principal); N39.0 Urinary tract infection, site not specified; L03.114 Cellulitis of left upper limb; B96.20 Unspecified Escherichia coli [E. coli] as the cause of diseases classified elsewhere; B96.5 Pseudomonas (aeruginosa) (mallei) (pseudomallei) as the cause of diseases classified elsewhere; M65.042 Abscess of tendon sheath, left hand; F19.10 Other psychoactive substance abuse, uncomplicated; J45.909 Unspecified asthma, uncomplicated; Z72.0 Tobacco use
CPT/HCPCS: 71045; 73130; 73220; 80048; 80053; 80202; 80307; 81001; 83605; 84703; 85025; 85652; 86140; 86403; 87015; 87040; 87070; 87077; 87086; 87102; 87116; 87147; 87186; 87205; 87206; 88305; 96361; 96365; 96375; A9579; J0692; J0744; J1170; J1885; J2060; J2175; J2270; J2405; J3010; J3370; J7030; J7050; J7120

== ENCOUNTER 2018-02-06 03:34 | Emergency (ER) | payer SELFPAY ==
[~2018-02-06] VITALS: Ht 167.6 cm; Wt 53.1 kg
[~2018-02-06 03:34] MED LIST changes: -BACT800T5 PO; +CLIN300C5 PO; +HYDR-3516 PO; -IBUP1TAB7 PO
[2018-02-06 03:45] VITALS: BP 135/72; PULSE 101; TEMP 98.2; O2SAT 99
== END 2018-02-06 05:00 | disposition left against medical advice (07) ==
LOC: PHED 03:34
DX: M79.643 Pain in unspecified hand (principal); Z53.21 Procedure and treatment not carried out due to patient leaving prior to being seen by health care provider
CPT/HCPCS: 99281